=== PATIENT | female | born 1935 | race Caucasian/White ===

== ENCOUNTER 2018-04-18 09:21 | Inpatient (IN) | payer BC, MEDICARE ==
[2018-04-18] MEDS ORDERED: Nitroglycerin TAB 0.4 MG* 0.4 MG TAB SL ONE (09:26)
[2018-04-18] MEDS ORDERED: Nitroglycerin 2% OINT* 1 GM PAK TOPICAL ONE (09:26)
[2018-04-18 09:48] LABS: ABS Basophils 0 10^3/ul (0-0.2); ABS Eosinophils 0.2 10^3/ul (0-0.6); ABS Lymphocytes 1.8 10^3/ul (1.0-4.8); ABS Monocytes 0.7 10^3/ul (0-0.8); ABS Neutrophils 4.8 10^3/ul (1.5-7.7); ABS Nucleated RBC 0 10^3/ul; Hematocrit 39 % (35-47); Hemoglobin 12.9 g/dl (12.0-16.0); Lymphocyte % 24.7 % (25-47); Mean Corpuscular HGB Conc 33 g/dl (31-36); Mean Corpuscular Hemoglobin 30 pg (27-31); Mean Corpuscular Volume 92 fL (80-97); Mean Platelet Volume 7.6 um3 (7.4-10.4); Nucleated Red Blood Cells % 0.1; Platelet Count 207 10^3/ul (150-450); Red Blood Count 4.26 10^6/ul (4.0-5.4); Red Cell Distribution Width 15 % (10.5-15); White Blood Count 7.5 10^3/ul (3.5-10.8)
[2018-04-18 10:09] LABS: EGFR Non-African American 52.7 (>60)
--- NOTE | 2018-04-18 10:21 | RAD ---
HISTORY: CP, chest pain COMPARISONS: None VIEWS: 1: frontal portable view of the chest at 10:00 AM FINDINGS: LINES AND TUBES: None. CARDIOMEDIASTINAL SILHOUETTE: The cardiomediastinal silhouette is normal for portable technique. PLEURA: The costophrenic angles are sharp. No pleural abnormalities are noted. LUNG PARENCHYMA: The lungs are clear. ABDOMEN: The upper abdomen is clear. There is no subphrenic gas. BONES AND SOFT TISSUES: No bone or soft tissue abnormalities are noted. IMPRESSION: NO ACTIVE CARDIOPULMONARY DISEASE.
[2018-04-18] MEDS ORDERED: Diltiazem IV* 5 MG/ML 5 ML VIAL (for loading dose/IV Push) (25 MG) IV SLOW PU ONE (10:53)
[2018-04-18] MEDS ORDERED: nitroGLYCERIN DRIP* 25,000 MCG/250 ML BTL IV ONE (10:53)
[2018-04-18] MEDS ORDERED: NS 0.9% 1000 ML* 1,000 ML IV ONE (11:25)
[2018-04-18] MEDS ORDERED: nitroGLYCERIN DRIP* 25,000 MCG/250 ML BTL IV SCH (12:00)
[2018-04-18] MEDS ORDERED: Magnesium Sulfate IV* 3 GM in NS 0.9% 100 ML* 100 ML IVPB ONE (12:24)
[2018-04-18] MEDS ORDERED: Perflutren Lipid Microsphere* 3 ML VIAL ONE (13:44)
[2018-04-18] MEDS: NS 0.9% 1000 ML* 1,000 ML IV SCH (13:53)
--- NOTE | 2018-04-18 14:51 | HP ---
CC: Dr. Darron Hawkins * HISTORY AND PHYSICAL: DATE OF ADMISSION: 04/18/18 PRIMARY CARE PROVIDER: Dr. Darron Hawkins. ATTENDING PHYSICIAN: Naty Means DO * (dictated by Emani Aly NP). CHIEF COMPLAINT: Chest pain. HISTORY OF PRESENT ILLNESS: Ms. Falcon is an 82-year-old female with a past medical history significant for osteoarthritis, hypertension, paroxysmal atrial fibrillation, hyperlipidemia, hypothyroidism, mitral valve prolapse, GERD, and vitamin B12 deficiency who states that she had been in her usual state of health. She reports several days ago cleaning all of her yard furniture, carrying them out of storage and washing them. She reports a couple of days ago noticing some shortness of breath while carrying laundry up the stairs that she typically does not experience. She reports having a cough and a cold approximately 3 weeks ago that resolved after she was prescribed some nasal spray by her primary care provider. According to the patient, her son noted that she was sweating at dinner last evening. She felt that she was just hot and did not think much of it. She reports feeling like herself when she went to bed last evening. She reports waking up at 1 a.m. with her "teeth hurting and feeling as though an elephant was sitting on her chest." She got up, made some tea, and laid on the cough and intermittently slept some. She then got up and around for the day and for an hour she went and walked at [employer]. She is unsure how many times she walked around or the distance that she walked. She had no changes in her discomfort while she went on this walk. She reports taking this walk every day. She reports generally getting palpitations and knowing when she is in AFib, but did not have palpitations today. Her daughter who is a physician assistant strength coach talked with her this morning and she recommended she go to her primary care provider. She went to Dr. Hawkins's office where she had an EKG showing atrial fibrillation with RVR and a new left bundle branch block since 2016. She had aspirin and nitro and was sent to the emergency room. The patient also denies any fevers, chills, cough, vomiting, diarrhea, or abdominal pain. She reports dry heaves this morning. She denies lightheadedness, dizziness. She does report some shortness of breath with exertion and at rest today. While in the emergency room, she had an EKG showing an atrial fibrillation at a rate of 109 and a left bundle branch block. She had a troponin of 0.00. Her other labs were unremarkable. I did add on a magnesium, which was 1.6 and ordered replacement. She had a repeat EKG showing a sinus rhythm and a rate of 71 and a left bundle branch block. She continued to have chest pressure after receiving sublingual nitro and nitro paste. She was started on a nitro drip and at this time she feels the pain is improving, but still continues to have a "heavy sensation" in her chest. Her pain is reproducible with palpation in her left chest and lower sternum. The patient also reports some radiating of her pain to her left arm. The hospitalist were asked to evaluate the patient for admission. PAST MEDICAL HISTORY: 1. Osteoarthritis. 2. Hypertension. 3. Paroxysmal atrial fibrillation. 4. Hyperlipidemia. 5. Hypothyroidism. 6. Mitral valve prolapse. 7. GERD. 8. Vitamin B12 deficiency. PAST SURGICAL HISTORY: 1. Status post ORIF of pelvis. 2. Status post partial thyroidectomy. 3. Status post excision of benign cyst at the right arm. 4. Status post excision of benign tumor behind her right knee. 5. Status post hysterectomy. 6. Status post appendectomy. 7. Status post left breast lumpectomy. 8. Status post right carpal tunnel release. MEDICATIONS: Home medications include: 1. Atorvastatin 40 mg oral daily. 2. Metoprolol tartrate 50 mg oral twice daily. 3. Flecainide 150 mg oral twice daily. 4. Pradaxa 150 mg oral twice daily. 5. Vitamin B12 a 1000 mcg oral daily. 6. Vitamin D 1000 units oral daily. 7. Evista 60 mg oral daily. 8. Levothyroxine 75 mcg oral daily. ALLERGIES: 1. TETRACYCLINE. 2. MULTAQ, causes nausea and vomiting. FAMILY HISTORY: She denies family history of coronary artery disease. Her son has a history of diabetes. Her mother passed in her 80s from colon cancer. SOCIAL HISTORY: The patient denies tobacco or recreational drug use. She drinks 2 glasses of wine daily. Her daughter, Janine Green, will be her surrogate decision maker in the event she is unable to make decisions for herself. REVIEW OF SYSTEMS: I performed an 11-point review of systems. All the pertinent positives and negatives are mentioned in the history of present illness. Remaining of the systems are negative. PHYSICAL EXAMINATION GENERAL APPEARANCE: The patient is alert, pleasant, appears to be in no acute distress. VITAL SIGNS: Temperature 97.9, heart rate 64, respiratory rate 18, O2 sat 99% on 2 L via nasal cannula, blood pressure 132/88. HEENT: Normocephalic, atraumatic. Pupils are equal and reactive to light. Extraocular movements are intact. RESPIRATORY: There is no accessory muscle use. The lungs are clear to auscultation bilaterally. CARDIOVASCULAR: Regular rate and rhythm. S1 and S2 present. There is no murmurs, rubs, or gallops heard. ABDOMEN: Soft, nontender, and nondistended. There are bowel sounds present x4. EXTREMITIES: There is no lower extremity edema. DP and PT pulses are 2+ and symmetric. MUSCULOSKELETAL: There is no clubbing or cyanosis noted. The patient exhibits good strength in all extremities. The patient does have reproducible pain to her lower sternum and left chest with palpation. NEUROLOGIC: The patient is alert and oriented x4. Cranial nerves II through XII are grossly intact. PSYCHOLOGICAL: The patient is calm and cooperative. SKIN: There are no rashes or abnormalities seen. DIAGNOSTIC STUDIES/LABORATORY DATA: Sodium 141, potassium 4.4, chloride 108, CO2 of 23, BUN 18, creatinine 1.01, glucose 111. Troponin 0.00. Magnesium 1.6. White blood cell count 7.5, hemoglobin 12.9, hematocrit 39, platelet count 207. EKG from 09 shows an atrial fibrillation at a rate of 109 and a left bundle branch block. Repeat EKG at 1117 shows a sinus rhythm and a rate of 71 and a left bundle branch block. Chest x-ray from today. Radiologist Impression: No active cardiopulmonary disease. IMPRESSION: Ms. Falcon is an 82-year-old female with past medical history significant for osteoarthritis, hypertension, paroxysmal atrial fibrillation, hyperlipidemia, hypothyroidism, mitral valve prolapse, gastroesophageal reflux disease, and vitamin B12 deficiency who presents to the emergency room with complaints of chest pain. She will be admitted as an inpatient for chest pain and new left bundle branch block. ASSESSMENT/PLAN: 1. Chest pain. The patient has a new left bundle branch block that is new from 2016. She will be continued on a nitro drip, monitored on telemetry in the ICU, and we will trend her troponins. I have asked Dr. Mclean with Cardiology to consult on the patient, also get an echocardiogram. She has a KIMBERLY score of 2. 2. Atrial fibrillation with rapid ventricular response. The patient converted to sinus rhythm while in the emergency room. She will be continued on her home flecainide, Pradaxa, and metoprolol. 3. History of hypertension. She is currently normotensive. She will be continued on her home metoprolol. 4. Hyperlipidemia. Continue home atorvastatin. We will check fasting lipids in the morning. 5. Hypothyroidism. Continue home levothyroxine. I will add a TSH to her emergency room labs. 6. Fluids, electrolytes, and nutrition: She will be on a heart-healthy diet. 7. Code status: Full code. 8. DVT prophylaxis: She is a high risk and will be continued on her home Pradaxa. 9. Disposition: Inpatient. TIME SPENT: Time for this admission was approximately 60 minutes, greater than half of that was spent [id number] with the patient discussing medications, past medical history, the events leading up to her arrival today, and performing a physical examination. The case has been reviewed with the attending, Dr. Means, who agrees with the plan of care. Reviewed by TAMIKA VENTURA 04/21/18 [id number]/[facility] #: [id number] AUGUSTINE
--- NOTE | 2018-04-18 16:08 | ECHO ---
Patient: FABIO CARO [facility] Rec#: [id number] : 1935 Date: 04/18/2018 Age: 82y Height: 170.18 cm / 67.0 in Weight: 68.04 kg / 150.0 lbs Sex: F BSA: 1.79 Room#: ICU 9 Admit Date#: 04/18/2018 Type: Inpatient Referring: Emani Hough NP Reading: Ryan Mclean MD Grapple Crew Leader: Zulma Hammonds RDCS,RDMS CC: Darron Hawkins MD Transthoracic Echocardiogram Indication: CP BP: 112/82 HR: 57 Rhythm: NSR Findings History: AFIB, HTN Technical Comments: The study quality is good. Left Ventricle: The left ventricular chamber size is normal. Mild concentric left ventricular hypertrophy is observed. Global left ventricular wall motion and contractility are within normal limits. Left ventricular systolic function is at the lower limits of normal. The estimated ejection fraction is 50-55%. Left Atrium: The left atrium is mildly dilated. Right Ventricle: The right ventricular chamber size and systolic function are within normal limits. Right Atrium: The right atrial cavity size is normal. Aortic Valve: The aortic valve is trileaflet. Systolic excursion of the aortic valve is normal. There is a trace of aortic regurgitation. There is no evidence of aortic stenosis. Mitral Valve: Mild mitral annular calcification present. Mitral valve leaflet mobility appears normal. There is moderate mitral regurgitation. There is no evidence of mitral stenosis. Tricuspid Valve: The tricuspid valve leaflets are normal. There is trace tricuspid regurgitation. No pulmonary hypertension is noted. Pulmonic Valve: The pulmonic valve structure is not well visualized. There is a trace pulmonic regurgitation. Pericardium: There is no significant pericardial effusion. Aorta: The aortic root appears normal. The aortic arch is not well visualized. Pulmonary Artery: The main pulmonary artery is not well visualized. Venous: The inferior vena cava appears normal in size. Contrast: Definity was used to optimize study. A total of 2 ml was used Conclusions Mild concentric left ventricular hypertrophy is observed. Global left ventricular wall motion and contractility are within normal limits. Left ventricular systolic function is at the lower limits of normal. The estimated ejection fraction is 50-55%. The right ventricular chamber size and systolic function are within normal limits. There is no evidence of aortic stenosis. There is a trace of aortic regurgitation. There is moderate mitral regurgitation. There is trace tricuspid regurgitation. There is no significant pericardial effusion. Measurements Name Value Normal Range RVIDd (AP) 2D 2.1 cm (0.9 - 2.6) RAd ISD 4CH 4.9 cm (3.4 - 4.9) RA (A4C)W 4.3 cm (2.9 - 4.6) IVSd (2D) 1.1 cm (0.6 - 1) LVPWd (2D) 1.2 cm (0.6 - 1) LVIDd (2D) 3.9 cm (3.6 - 5.4) LVIDs (2D) 3 cm - LV FS (2D) 22 % (25 - 45) Aortic Annulus 2 cm (1.4 - 2.6) Ao root diameter (2D) 2.8 cm (2.1 - 3.5) Ascending Ao 2.5 cm (2.1 - 3.4) LA dimension (AP) 2D 3.6 cm (2.3 - 3.8) LAd ISD 4CH 5.4 cm (2.9 - 5.3) LA ISD 4CH W 4.1 cm (2.5 - 4.5) Name Value Normal Range LA ESV SP 4CH (A/L) 50.52 ml - LA ESV SP 2CH (A/L) 85.3 ml - LA ESV BP (A/L) 70.91 ml - LA ESV BP (A/L) index 40 ml/m2 - LA ESV SP 4CH (MOD) 48.56 ml - LA ESV SP 2CH (MOD) 80.03 ml - Name Value Normal Range MV E-wave Vmax 0.8 m/sec - MV deceleration time 238 msec - MV A-wave Vmax 0.5 m/sec - MV E:A ratio 1.6 ratio - Name Value Normal Range AV Vmax 1.2 m/sec - AV VTI 27.1 cm - AV peak gradient 6 mmHg - AV mean gradient 3.8 mmHg - LVOT Vmax 1.1 m/sec - LVOT VTI 21 cm - LVOT peak gradient 5 mmHg - LVOT mean gradient 2.6 mmHg - Name Value Normal Range TR Vmax 2.3 m/sec - TR peak gradient 21 mmHg - RAP 3 mmHg - RVSP 24 mmHg - IVC diameter 2 cm - Name Value Normal Range PV Vmax 0.7 m/sec - PV peak gradient 2 mmHg -
[2018-04-18] MEDS: Diltiazem TAB* 30 MG PO SCH ×2 (18:21→23:53)
--- NOTE | 2018-04-18 18:50 | ED ---
Umair Loving Angela scribed for Andrae Gonzalez MD on 04/18/18 at 0934 . HPI Chest Pain - HPI Summary HPI Summary: This pt is an 82 y/o female presenting to [facility] via EMS from PCP's office c/o chest pain since 01:00 this morning. Pt reports she woke up at 01:00 today with a heavy chest. She states her chest pain radiates to her teeth and both arms. Pt notes she thought her symptoms were from all the work she did in the garden yesterday. Pt additionally notes she had SOB and nausea. Denies vomiting. She reports she was unable to take a deep full breath. She then went back to sleep and woke up later to take a 1 hour walk with her friends. Pt states she was tired during her walk. Pt called her daughter who advised her to go her PCP. She went to her PCP and she was referred to [facility]. Pt notes she still has chest heaviness currently rated 3 or 4 out of 10 in severity. EMS administered nitroglycerin tabs x3 with mild relief. Pt received baby aspirin at her PCP's office. PMHx includes atrial fibrillation, rheumatic fever. No hx of diabetes or pacemaker. Pt is anticoagulated. LBBB is new compared to EKG in June 2016. - History of Current Complaint Hx Obtained From: Patient Onset/Duration: Started Hours Ago, Still Present Timing: Lasting Hours Current Severity: Moderate Pain Intensity: 4 Pain Scale Used: 0-10 Numeric Chest Pain Location: Diffuse Chest Pain Radiates: Yes Chest Pain Radiates To:: Arm, Jaw Character: Heaviness Aggravating Factor(s): Nothing Alleviating Factor(s): Nothing Associated Signs and Symptoms: Positive: Chest Pain, Shortness of Breath, Nausea. Negative: Fever, Chills, Back Pain, Vomiting - Allergy/Home Medications Allergies/Adverse Reactions: Allergies Allergy/AdvReac Type Severity Reaction Status Date / Time Tetracyclines Allergy Rash Verified 04/18/18 09:47 Home Medications: Home Medications Atorvastatin* [Lipitor*] 40 mg PO DAILY 04/18/18 [History Confirmed 04/18/18] Cholecalciferol TAB* [Vitamin D TAB*] 1,000 unit PO DAILY 04/18/18 [History Confirmed 04/18/18] Cyanocobalamin TAB* [Vitamin B12 TAB*] 1,000 mcg PO DAILY 04/18/18 [History Confirmed 04/18/18] Dabigatran CAP(NF) [Pradaxa CAP(NF)] 150 mg PO BID 04/18/18 [History Confirmed 04/18/18] Flecainide TAB* [Tambocor TAB*] 150 mg PO BID 04/18/18 [History Confirmed ] Levothyroxine TAB* [Synthroid TAB*] 75 mcg PO DAILY 04/18/18 [History Confirmed 04/18/18] Metoprolol Tartrate TAB* [Lopressor TAB*] 50 mg PO BID 04/18/18 [History Confirmed 04/18/18] Omeprazole CAP* [Prilosec CAP* 20 MG] 20 mg PO DAILY 04/18/18 [History Confirmed 04/18/18] Raloxifene (NF) [Evista(NF)] 60 mg PO DAILY 04/18/18 [History Confirmed 04/18/18 ] PMH/Surg Hx/FS Hx/Imm Hx Endocrine/Hematology History: Denies: Hx Diabetes Cardiovascular History: Reports: Hx Atrial Fibrillation, Hx Rheumatic Fever Denies: Hx Pacemaker/ICD - Family History Known Family History: Positive: Diabetes Family History: Cancer, migraines - Social History Alcohol Use: None Substance Use Type: Reports: None Smoking Status (MU): Never Smoked Tobacco Review of Systems Positive: Fatigue. Negative: Fever, Chills Negative: Erythema Negative: Sore Throat Positive: Chest Pain Positive: Shortness Of Breath. Negative: Cough Positive: Nausea. Negative: Abdominal Pain, Vomiting Negative: dysuria, hematuria Negative: Myalgia, Edema Negative: Rash Neurological: Other - NEG: dizziness All Other Systems Reviewed And Are Negative: Yes Physical Exam - Summary Physical Exam Summary: Constitutional: Well-developed, Well-nourished, Alert. (-) Distressed Skin: Warm, Dry HENT: Normocephalic; Atraumatic Eyes: Conjunctiva normal Neck: Musculoskeletal ROM normal neck. (-) JVD, (-) Stridor, (-) Tracheal deviation Cardio: Rhythm regular, rate normal, Heart sounds normal; Intact distal pulses; The pedal pulses are 2+ and symmetric. Irregular pulse which I palpated to be 104 bpm. (-) Murmur Pulmonary/Chest wall: Effort normal. (-) Respiratory distress, (-) Wheezes, (-) Rales Abd: Soft, (-) Tenderness, (-) Distension, (-) Guarding, (-) Rebound Musculoskeletal: (-) Edema Lymph: (-) Cervical adenopathy Neuro: Alert, Oriented x3 Psych: Mood and affect Normal Triage Information Reviewed: Yes Vital Signs On Initial Exam: Initial Vitals Temp Pulse Resp BP Pulse Ox 97.9 F 103 19 131/100 94 04/18/18 09:29 04/18/18 09:29 04/18/18 09:29 04/18/18 09:29 04/18/18 09:29 Vital Signs Reviewed: Yes Diagnostics - Laboratory Result Diagrams: 04/18/18 09:41 04/18/18 09:41 Lab Statement: Any lab studies that have been ordered have been reviewed, and results considered in the medical decision making process. - Radiology Chest XR Xray Interpretation: No Acute Changes - IMPRESSION: No active cardiopulmonary disease. Dr. Gonzalez has reviewed this radiology report. Radiology Interpretation Completed By: Radiologist - EKG 09:23 Cardiac Rate: Tachycardia - at 109 bpm EKG Rhythm: Atrial Fibrillation EKG Interpretation: new LBBB. No STEMI. 11:17 Cardiac Rate: NL - at 71 bpm EKG Rhythm: Sinus Rhythm EKG Interpretation: LBBB. Re-Evaluation - Re-Evaluation First Eval Re-Evaluation Time: 11:06 Change: Unchanged Comment: Pt feels like an elephant is sitting on her chest. She rates her chest discomfort 4 or 5 out of 10 in severity. Second Eval Re-Evaluation Time: 11:18 Change: Improved Comment: Afib with rate control at 60 bpm. Third Eval Re-Evaluation Time: 11:59 Change: Unchanged Comment: Updated family on admission plan. Pt is still having 4/10 chest pain. She will be given nitroglycerin drip. Chest Pain Course/Dx - Course Assessment/Plan: Pt is an 82 y/o female with hx of afib on anticoagulation who presents with chest pain since 01:00 this morning. Pt reports she woke up at 01: 00 today with a heavy chest. She states her chest pain radiates to teeth and both arms. Pt additionally notes she had SOB and nausea. Denies vomiting. She reports she was unable to take a deep full breath. Pt was given aspirin and nitro tabs x3. In the ED course the pt was given IV fluids, nitroglycerin ointment, nitroglycerin drip, Diltiazem. Chest XR is negative. First EKG shows atrial fibrillation at 109 bpm with new LBBB. Second EKG shows NSR at 71 bpm and LBBB. On re-evaluation her atrial fibrillation is rate controlled at 60 bpm. [11:06]I discussed pt care with Dr. Mclean, wet end supervisor, who agrees to call the interventionalist. [11:22] I discussed with Dr. Sidhu, yoavist, and reports that due to the negative troponin and her anticoagulated status, he wants to wait until the second troponin before taking the pt to the slab off mill tender. [11:29] I discussed with Dr. Means, hospitalist, who accepted the pt for admission. - Diagnoses Provider Diagnoses: Chest pain, Left bundle branch block - Provider Notifications Discussed Care Of Patient With: Ryan Mclean Time Discussed With Above Provider: 11:06 Instructed by Provider To: Other - I discussed pt care with Dr. Mclean, wet end supervisor, who agrees to call the interventionalist. [11:22] I discussed with Dr. Sidhu, interventionalist, and reports that due to the negative troponin and her anticoagulated status, he wants to wait until the second troponin before taking the pt to the slab off mill tender. [11:29] I discussed with Dr. Means, hospitalist, who accepted the pt for admission. - Critical Care Time Critical Care Time: 30-74 min - 45 minutes Discharge - Sign-Out/Discharge Documenting (check all that apply): Discharge/Admit/Transfer - Admit - Discharge Plan Condition: Stable Disposition: ADMITTED TO [facility] documentation as recorded by the Umair herman Angela accurately reflects the service I personally performed and the decisions made by me, Andrae Gonzalez MD.
[2018-04-18] MEDS: Metoprolol Tartrate TAB* 50 mg PO SCH (20:21)
[2018-04-18] MEDS: CMCS Dabigatran CAP(NF) 150 MG CAP PO SCH (20:21)
[2018-04-18] MEDS ORDERED: Flecainide TAB* 100 MG PO SCH (21:00)
--- NOTE | 2018-04-19 00:50 | CONS ---
CC: Dr. Darron Hawkins * CARDIOLOGY CONSULTATION: DATE OF CONSULT: 04/18/18 - ROOM #ICU-09 INDICATIONS FOR CONSULT: Chest pain, left bundle branch block, atrial fibrillation. HISTORY OF PRESENT ILLNESS: The patient is an 82-year-old female with a history of paroxysmal atrial fibrillation. The patient is on anticoagulation and flecainide for her atrial fibrillation, who had an episode of chest pain last night. The patient states she woke up around 1:00 in the morning, she went downstairs to get tea and started having chest pain. It was in the center of her chest that radiated to her jaw. She had no diaphoresis. She had no nausea and vomiting. She said it lasted for maybe an hour or so and then, she was able to go back to bed. She got up in the morning. She went with her walking group and walked for approximately half an hour. She states she felt tired, but did not have actual chest pain. She got home, was feeling just fatigued and spoke with her daughter. Her daughter asked her to be evaluated. The patient went to Dr. Hawkins's office, where she was found to have a left bundle branch block and atrial fibrillation. She was since admitted to the hospital. In the emergency room, the patient was having chest pain. It was not radiating to her jaw at that point. She just felt a heaviness in her chest. She rated it as about 2/10. The patient was in atrial fibrillation with rapid ventricular response. The patient was admitted to the hospital. She was continued on her outpatient medications. She was started on a nitro drip. Her troponins are negative x2. When I went to see the patient, she was back in normal sinus rhythm and asymptomatic. PAST MEDICAL HISTORY: Significant for arthritis, hypertension, paroxysmal atrial fibrillation, and hyperlipidemia. PAST SURGICAL HISTORY: ORIF of a pelvis fracture, status post thyroidectomy, hysterectomy, appendectomy, left breast lumpectomy, and carpal tunnel release on the right. OUTPATIENT MEDICATIONS: 1. Atorvastatin 40 mg a day. 2. Metoprolol tartrate 50 mg b.i.d. 3. Flecainide 150 mg b.i.d. 4. Pradaxa 150 mg b.i.d. 5. Evista 60 mg a day. 6. Levothyroxine 75 mcg a day. ALLERGIES: To TETRACYCLINE and MULTAQ, which cause nausea. FAMILY HISTORY: Positive for coronary artery disease. SOCIAL HISTORY: She drinks 2 glasses of wine a day. She denies any tobacco use. PHYSICAL EXAM: Height is 5 feet 7 inches, weight is 162 pounds. Heart rate is 76, blood pressure 106/74, respiratory rate is 22, oxygen saturation 97% on 2 L , temperature 97.2. Sclerae anicteric. Oropharynx is pink without erythema. Carotids are 2+ without bruits. JVD is normal. Thyroid is normal. Cardiac Exam: S1, S2 without any murmurs, rubs, or gallops. PMI is normal. Lungs are clear to auscultation bilaterally. There is no dullness to percussion. Abdomen is soft, nontender, and nondistended with normoactive bowel sounds. Extremities show no edema. She has 2+ pulses through-out. The patient is awake , alert, and oriented. She moves all 4 extremities equally. DIAGNOSTIC STUDIES/LAB DATA: An echocardiogram today demonstrated low normal LV systolic function, ejection fraction of 50% to 55%. There is no evidence of aortic stenosis. She does have moderate mitral regurgitation and trace tricuspid regurgitation. Laboratory studies: CBC within normal limits. Chemistries within normal limits. Troponins are negative x2. TSH 1.4. IMPRESSION AND PLAN: This is an 82-year-old female with a history of paroxysmal atrial fibrillation, who woke up last night and was having some chest pain radiating up into her jaw. Again, it lasted for about an hour. She was also having chest pain on and off this morning. The patient arrived in the emergency room, she was having mild chest pain. She had a new left bundle branch block and atrial fibrillation. The patient is now back in normal sinus rhythm. For now, my recommendation is that the patient undergo a chemical nuclear stress test. The patient is back in atrial fibrillation now. The patient is on the maximum dose of flecainide. The patient may require a different antiarrhythmic medication for control of her atrial fibrillation. Further recommendations pending the results of her stress test. [id number]/[facility] #: [id number] A[place]
[2018-04-19] MEDS ORDERED: Acetaminophen TAB* 325 MG ONE (02:19)
[2018-04-19] MEDS: Acetaminophen TAB* 325 MG PO PRN ×3 (02:22→21:33)
[2018-04-19] MEDS ORDERED: Nitroglycerin 2% OINT* 1 GM PAK TOPICAL ONE (02:26)
[2018-04-19] MEDS ORDERED: Nitroglycerin 2% OINT* 1 GM PAK ONE (02:33)
[2018-04-19] MEDS: Levothyroxine TAB* 75 MCG TAB PO SCH (05:47)
[2018-04-19] MEDS: Diltiazem TAB* 30 MG PO SCH ×3 (05:47→18:19)
[2018-04-19] MEDS: Atorvastatin* 40 MG TAB PO SCH (07:57)
[2018-04-19] MEDS: Omeprazole CAP* 20 MG PO SCH (07:57)
[2018-04-19] MEDS: Metoprolol Tartrate TAB* 50 mg PO SCH ×2 (07:57→21:33)
[2018-04-19] MEDS: Cyanocobalamin TAB* 500 MCG PO SCH (07:57)
[2018-04-19] MEDS: Cholecalciferol TAB* 1000 UNITS PO SCH (07:57)
[2018-04-19] MEDS: CMCS Dabigatran CAP(NF) 150 MG CAP PO SCH ×2 (07:59→21:33)
[2018-04-19] MEDS: RALOXIFENE 60 MG PO SCH (08:00)
[2018-04-19] MEDS ORDERED: Nitroglycerin TAB 0.4 MG* 0.4 MG TAB ONE (08:35)
[2018-04-19] MEDS: Nitroglycerin TAB 0.4 MG* 0.4 MG TAB SL PRN ×2 (08:37→08:43)
[2018-04-19] MEDS ORDERED: Regadenoson* 0.4 MG/5 ML SYRINGE ONE (10:09)
[2018-04-19] MEDS ORDERED: Aminophylline IV* 25 MG/ML 10 ML VIAL ONE (10:09)
--- NOTE | 2018-04-19 11:43 | RAD ---
INDICATION: Chest pain. Left bundle branch block COMPARISON: None TECHNIQUE: A single day SPECT protocol was utilized. Rest images were acquired following the intravenous injection of 10.8 millicuries of technetium 99m tetrofosmin. Pharmacologic stress images were acquired following the intravenous administration of 25.2 millicuries of technetium 99m tetrofosmin. FINDINGS: There are no stress-induced defects. There is mild decreased activity in the septal wall at the level the cardiac apex which appears fixed. The cardiac chamber size is normal. There are no wall motion abnormalities. The ejection fraction is calculated at 62 percent during stress. IMPRESSION: SMALL FIXED SEPTAL DEFECT NEAR THE CARDIAC APEX, OTHERWISE NEGATIVE. ASSESSMENT: LOW-RISK Based on imaging criteria from ACC/AHA 2002 Guideline Update for the Management of Patients With Chronic Stable Angina Table 23. Noninvasive Risk Stratification.
[2018-04-19] MEDS ORDERED: Amiodarone 150 MG IVPREMIX* 150 MG/100 ML BAG IV ONE ×2 (11:57→12:04)
[2018-04-19] MEDS ORDERED: Amiodarone 360 MG IVPREMIX* 360 MG/200 ML BAG IV ONE (12:10)
--- NOTE | 2018-04-19 12:56 | PN ---
Subjective Date of Service: 04/19/18 Interval History: HOSPITALIST PROGRESS NOTE Patient seen and examined at bedside. Care reviewed and d/w Larissa Yip RN. She feels better today, chest pain was down to 1/10, but later on developed chest pain radiating to her jaw and teeth, relieved by nitro. Family History: Unchanged from Admission Social History: Unchanged from Admission Past Medical History: Unchanged from Admission Objective Active Medications: Acetaminophen (Tylenol Tab*) 650 mg PO Q6H PRN PRN Reason: PAIN Last Admin: 04/19/18 02:22 Dose: 650 mg Atorvastatin Calcium (Lipitor*) 40 mg PO DAILY [facility] Last Admin: 04/19/18 07:57 Dose: 40 mg Cholecalciferol (Vitamin D Tab*) 1,000 units PO DAILY [facility] Last Admin: 04/19/18 07:57 Dose: 1,000 units Cyanocobalamin (Vitamin B12 Tab*) 1,000 mcg PO DAILY [facility] Last Admin: 04/19/18 07:57 Dose: 1,000 mcg Dabigatran (Pradaxa Cap(Nf)) 150 mg PO BID [facility] Last Admin: 04/19/18 07:59 Dose: 150 mg Diltiazem HCl (Cardizem Tab*) 30 mg PO Q6HR [facility] Last Admin: 04/19/18 12:26 Dose: 30 mg Sodium Chloride (Ns 0.9% 1000 Ml*) 1,000 mls @ 75 mls/hr IV PER RATE [facility] Last Admin: 04/18/18 13:53 Dose: 75 mls/hr Amiodarone HCl (Nexterone 360 Mg/200 Ml Ivpremix*) 360 mg in 200 mls @ 33.333 mls/hr IV ONCE ONE PRN Reason: 1 MG/MIN Stop: 04/19/18 18:09 Last Admin: 04/19/18 12:23 Dose: 33.333 mls/hr Levothyroxine Sodium (Synthroid Tab*) 75 mcg PO 0600 [facility] Last Admin: 04/19/18 05:47 Dose: 75 mcg Metoprolol Tartrate (Lopressor Tab*) 50 mg PO BID [facility] Last Admin: 04/19/18 07:57 Dose: 50 mg Nitroglycerin (Nitroglycerin Tab 0.4 Mg*) 0.4 mg SL Q5M PRN PRN Reason: ANGINA Last Admin: 04/19/18 08:43 Dose: 0.4 mg Omeprazole (Prilosec Cap*) 20 mg PO 0730 [facility] Last Admin: 04/19/18 07:57 Dose: 20 mg Raloxifene HCl (Evista(Nf)) 60 mg PO DAILY [facility] PRN Reason: Protocol Last Admin: 04/19/18 08:00 Dose: Not Given Vital Signs - 8 hr 04/19/18 04/19/18 04/19/18 05:00 06:00 07:00 Temperature Pulse Rate 77 Respiratory 19 16 13 Rate Blood Pressure 114/85 134/86 128/81 (mmHg) O2 Sat by Pulse 97 98 91 Oximetry 04/19/18 04/19/18 04/19/18 07:36 08:00 08:39 Temperature 98.8 F Pulse Rate 84 Respiratory 14 14 Rate Blood Pressure 144/121 (mmHg) O2 Sat by Pulse 98 Oximetry 04/19/18 04/19/18 04/19/18 08:40 08:45 08:50 Temperature Pulse Rate 86 76 81 Respiratory 20 23 18 Rate Blood Pressure 124/90 115/76 106/65 (mmHg) O2 Sat by Pulse 98 96 94 Oximetry 04/19/18 04/19/18 04/19/18 08:55 09:30 09:35 Temperature Pulse Rate 78 78 Respiratory 21 5 25 Rate Blood Pressure 107/72 112/79 (mmHg) O2 Sat by Pulse 95 93 Oximetry 04/19/18 04/19/18 04/19/18 09:40 09:45 09:50 Temperature Pulse Rate 80 81 85 Respiratory 26 20 Rate Blood Pressure 110/48 115/78 120/90 (mmHg) O2 Sat by Pulse 96 97 96 Oximetry 04/19/18 04/19/18 04/19/18 11:14 11:15 11:18 Temperature Pulse Rate 90 102 92 Respiratory 13 15 Rate Blood Pressure 138/101 137/87 (mmHg) O2 Sat by Pulse 97 95 99 Oximetry 04/19/18 04/19/18 04/19/18 11:30 12:00 12:01 Temperature 99.4 F Pulse Rate 90 92 98 Respiratory 20 14 19 Rate Blood Pressure 144/94 140/57 (mmHg) O2 Sat by Pulse 94 97 97 Oximetry 04/19/18 12:14 Temperature Pulse Rate 93 Respiratory 17 Rate Blood Pressure 134/90 (mmHg) O2 Sat by Pulse 98 Oximetry Oxygen Devices in Use Now: Nasal Cannula Appearance: Pleasant elderly lady sitting up in bed in NAD. Eyes: No Scleral Icterus Ears/Nose/Mouth/Throat: Mucous Membranes Moist Neck: Trachea Midline Respiratory: Symmetrical Chest Expansion and Respiratory Effort, Clear to Auscultation Cardiovascular: - - Normal S1 and S2, irregularly irregular Abdominal: NL Sounds; No Tenderness; No Distention Extremities: No Edema Neurological: Alert and Oriented x 3, NL Muscle Strength and Tone Result Diagrams: 04/18/18 09:41 04/18/18 09:41 Assess/Plan/Problems-Billing Assessment: Mrs. Falcon is an 82yo F with PMH of paroxysmal Afib, HTN, HLD, hypothyroidism , MVP, GERD, vitamin B12 deficiency, who presented to ED with c/o chest pain. - Patient Problems (1) Chest pain Comment: - D/w Cardiology - if stress test is negative, will start Amiodarone as Afib seems to be the source of her symptoms. - Continue Metoprolol, Atorvastatin, and Pradaxa. (2) DVT prophylaxis Comment: - Pradaxa. (3) Full code status Status and Disposition: Change to inpatient.
[2018-04-19] MEDS: Amiodarone 360 MG IVPREMIX* 360 MG/200 ML BAG IV SCH (18:24)
[2018-04-20] MEDS: Diltiazem TAB* 30 MG PO SCH ×3 (00:51→11:43)
[2018-04-20] MEDS: Amiodarone 360 MG IVPREMIX* 360 MG/200 ML BAG IV SCH (05:59)
[2018-04-20] MEDS: Levothyroxine TAB* 75 MCG TAB PO SCH (06:00)
[2018-04-20] MEDS: Omeprazole CAP* 20 MG PO SCH (08:22)
[2018-04-20] MEDS: Atorvastatin* 40 MG TAB PO SCH (08:22)
[2018-04-20] MEDS: RALOXIFENE 60 MG PO SCH (08:22)
[2018-04-20] MEDS: CMCS Dabigatran CAP(NF) 150 MG CAP PO SCH (08:22)
[2018-04-20] MEDS: Metoprolol Tartrate TAB* 50 mg PO SCH ×2 (08:22→20:59)
[2018-04-20] MEDS: Cholecalciferol TAB* 1000 UNITS PO SCH (08:22)
[2018-04-20] MEDS: Cyanocobalamin TAB* 500 MCG PO SCH (08:22)
[2018-04-20] MEDS ORDERED: Naloxone* 0.4 MG/ML 1 ML VIAL ONE (09:31)
[2018-04-20] MEDS ORDERED: Flumazenil* 0.1 MG/ML 5 ML MDV ONE (09:31)
[2018-04-20] MEDS ORDERED: fentaNYL* 50 MCG/ML 2 ML VIAL (100 MCG VIAL) ONE (09:31)
[2018-04-20] MEDS ORDERED: Midazolam* 1 MG/ML 10 ML VIAL (10 MG) ONE (09:31)
--- NOTE | 2018-04-20 10:21 | PN ---
Subjective Date of Service: 04/20/18 - CC: chest heaviness. Interval History: The patient awoke from sleep early Wednesday morning with chest heaviness following several glasses of wine the night prior. Unaware of palpitations. Found in atypical flutter vs. atrial fibrillation. Dr. Mclean consulted, had been on flecainide and he initiated amiodarone gtt with plans for CV today. The patient's chest heaviness not present now. Medications Active Medications: Acetaminophen (Tylenol Tab*) 650 mg PO Q6H PRN PRN Reason: PAIN Last Admin: 04/19/18 21:33 Dose: 650 mg Atorvastatin Calcium (Lipitor*) 40 mg PO DAILY [facility] Last Admin: 04/20/18 08:22 Dose: 40 mg Cholecalciferol (Vitamin D Tab*) 1,000 units PO DAILY [facility] Last Admin: 04/20/18 08:22 Dose: 1,000 units Cyanocobalamin (Vitamin B12 Tab*) 1,000 mcg PO DAILY [facility] Last Admin: 04/20/18 08:22 Dose: 1,000 mcg Dabigatran (Pradaxa Cap(Nf)) 150 mg PO BID [facility] Last Admin: 04/20/18 08:22 Dose: 150 mg Diltiazem HCl (Cardizem Tab*) 30 mg PO Q6HR [facility] Last Admin: 04/20/18 06:00 Dose: 30 mg Sodium Chloride (Ns 0.9% 1000 Ml*) 1,000 mls @ 75 mls/hr IV PER RATE [facility] Last Admin: 04/18/18 13:53 Dose: 75 mls/hr Levothyroxine Sodium (Synthroid Tab*) 75 mcg PO 0600 [facility] Last Admin: 04/20/18 06:00 Dose: 75 mcg Metoprolol Tartrate (Lopressor Tab*) 50 mg PO BID [facility] Last Admin: 04/20/18 08:22 Dose: 50 mg Nitroglycerin (Nitroglycerin Tab 0.4 Mg*) 0.4 mg SL Q5M PRN PRN Reason: ANGINA Last Admin: 04/19/18 08:43 Dose: 0.4 mg Omeprazole (Prilosec Cap*) 20 mg PO 0730 [facility] Last Admin: 04/20/18 08:22 Dose: 20 mg Raloxifene HCl (Evista(Nf)) 60 mg PO DAILY [facility] PRN Reason: Protocol Last Admin: 04/20/18 08:22 Dose: 60 mg Objective Vital Signs: Temp Pulse Resp BP Pulse Ox 98.5 F 81 16 126/74 99 04/20/18 08:00 04/20/18 08:31 04/20/18 08:31 04/20/18 08:31 04/20/18 08:31 Oxygen Devices in Use Now: Nasal Cannula Appearance: lean well nourished elderly female in no distress lying at 30 degrees Eyes: No Scleral Icterus, PERRLA Ears/Nose/Mouth/Throat: Clear Oropharnyx, Mucous Membranes Moist Neck: NL Appearance and Movements; NL JVP Respiratory: Symmetrical Chest Expansion and Respiratory Effort, Clear to Auscultation Cardiovascular: NL Sounds; No Murmurs; No JVD - irregularly irregular. Abdominal: NL Sounds; No Tenderness; No Distention Extremities: No Edema, No Clubbing, Cyanosis Skin: No Rash or Ulcers Neurological: Alert and Oriented x 3, NL Muscle Strength and Tone Lines/Tubes/Other Access: Clean, Dry and Intact Peripheral IV Laboratory Results: Laboratory Tests 04/18/18 04/18/18 04/18/18 09:41 09:41 09:41 WBC 7.5 RBC 4.26 Hgb 12.9 Hct 39 MCV 92 MCH 30 MCHC 33 RDW 15 Plt Count 207 MPV 7.6 Neut % (Auto) 63.7 Lymph % (Auto) 24.7 L [place] % (Auto) 9.0 H Eos % (Auto) 2.0 Baso % (Auto) 0.6 Absolute Neuts (auto) 4.8 Absolute Lymphs (auto) 1.8 Absolute Monos (auto) 0.7 Absolute Eos (auto) 0.2 Absolute Basos (auto) 0 Absolute Nucleated RBC 0 Nucleated RBC % 0.1 D-Dimer, Quantitative Sodium 141 Potassium 4.4 Chloride 108 Carbon Dioxide 26 Anion Gap 7 BUN 18 Creatinine 1.01 H Est GFR ( Amer) 67.8 Est GFR (Non-Af Amer) 52.7 BUN/Creatinine Ratio 17.8 Glucose 111 H Lactic Acid 1.1 Calcium 9.0 Magnesium 1.6 L Total Bilirubin 0.60 AST 38 ALT 39 Alkaline Phosphatase 91 Troponin I 0.00 Total Protein 6.4 Albumin 3.8 Globulin 2.6 Albumin/Globulin Ratio 1.5 TSH 1.41 04/18/18 04/18/18 12:30 12:32 WBC RBC Hgb Hct MCV MCH MCHC RDW Plt Count MPV Neut % (Auto) Lymph % (Auto) [place] % (Auto) Eos % (Auto) Baso % (Auto) Absolute Neuts (auto) Absolute Lymphs (auto) Absolute Monos (auto) Absolute Eos (auto) Absolute Basos (auto) Absolute Nucleated RBC Nucleated RBC % D-Dimer, Quantitative < 200 Sodium Potassium Chloride Carbon Dioxide Anion Gap BUN Creatinine Est GFR ( Amer) Est GFR (Non-Af Amer) BUN/Creatinine Ratio Glucose Lactic Acid Calcium Magnesium Total Bilirubin AST ALT Alkaline Phosphatase Troponin I 0.00 Total Protein Albumin Globulin Albumin/Globulin Ratio TSH Diagnostic Imaging: Nuclear stress: EF 66%, small fixed septal defect, no reversable ischemia. ECHO: EF 50-55%, moderate MR. EKG Data: Montitor: atypical flutter overnight (04/18/18 transient NSR). Assessment/Plan 82 yo female with a hx of PAF on flecainide via Dr Fu admitted with atrial flutter and chest heaviness. Intermittant rate related LBBB seen. Anti arrhythmic was converted to IV amiodarone yesterday and today the patient failed electrical CV this AM (75J, 180 J, 200 J). Aflutter/fib: Replace Magnesium Continue Pradaxa Per pharmacy need to drop pradaxa dose for amiodarone due to interaction. Pt advised on alcohol and association with A. fib/flutter. Anti arrhythmic options broader than amiodarone with reassuring stress test, normal EF, per pharmacy 1/2 life single use IV amiodarone is weeks. After extensive discussion with pharmacy, will covert Pradaxa to Eliquis. Continue amiodarone loading but oral. Tentative plan for rate control, out patient amiodarone loading and re try CV with primary suspect artist Dr Fu. Chest heaviness: Improved/resolved, no evidence of significant CAD based on troponins and stress testing. With good ventricular rate control this should be minimized.
[2018-04-20] MEDS ORDERED: Magnesium Sulfate 2 GM IV* 2 GM/50 ML BAG IVPB ONE (10:31)
[2018-04-20] MEDS: Amiodarone TAB* 400 MG PO SCH (11:43)
[2018-04-20] MEDS: NS 0.9% 1000 ML* 1,000 ML IV SCH (11:49)
--- NOTE | 2018-04-20 13:32 | CARD ---
CC: Dr. Delbert Cameron, public events facilities rental manager in [place]; Hospitalist; Dr. Darron Hawkins in [place] * ELECTRICAL CARDIOVERSION NOTE: DATE OF PROCEDURE: 04/20/18 PROCEDURE: Electrical cardioversion. PREPROCEDURE DIAGNOSIS: Coarse atrial fibrillation versus atypical flutter. The indications, risks and benefits of the procedure were discussed with the patient, she verified that she had been compliant with her anticoagulation ( Pradaxa). Her son and son-in-law were present and she was amenable to proceeding. PROCEDURE IN DETAIL: A time-out procedure was called. The patient then received a total of 5 mg of Versed and 25 mcg of fentanyl for sedation. Three defibrillations were attempted, 75 joules, 180 joules, and 200 joules synchronously delivered across the chest wall. She never cardioverted on any of these, not even transiently. CONCLUSION: Unsuccessful cardioversion, on amiodarone drip. The patient was hemodynamically stable throughout the procedure and during recovery. [id number]/[facility] #: [id number] [facility]OSPITALBenji
--- NOTE | 2018-04-20 14:26 | PN ---
Subjective Date of Service: 04/20/18 Interval History: HOSPITALIST PROGRESS NOTE Patient seen and examined at bedside. Care reviewed and d/w Zulma Parker RN. She feels better today, chest pain is resolved. Denies palpitations or dyspnea, but has not moved much. Family History: Unchanged from Admission Social History: Unchanged from Admission Past Medical History: Unchanged from Admission Objective Active Medications: Acetaminophen (Tylenol Tab*) 650 mg PO Q6H PRN PRN Reason: PAIN Last Admin: 04/19/18 21:33 Dose: 650 mg Amiodarone HCl (Cordarone Tab*) 400 mg PO DAILY [facility] Last Admin: 04/20/18 11:43 Dose: 400 mg Apixaban (Eliquis*) 5 mg PO BID [facility] Atorvastatin Calcium (Lipitor*) 40 mg PO DAILY [facility] Last Admin: 04/20/18 08:22 Dose: 40 mg Cholecalciferol (Vitamin D Tab*) 1,000 units PO DAILY [facility] Last Admin: 04/20/18 08:22 Dose: 1,000 units Cyanocobalamin (Vitamin B12 Tab*) 1,000 mcg PO DAILY [facility] Last Admin: 04/20/18 08:22 Dose: 1,000 mcg Levothyroxine Sodium (Synthroid Tab*) 75 mcg PO 0600 [facility] Last Admin: 04/20/18 06:00 Dose: 75 mcg Metoprolol Tartrate (Lopressor Tab*) 50 mg PO BID [facility] Last Admin: 04/20/18 08:22 Dose: 50 mg Nitroglycerin (Nitroglycerin Tab 0.4 Mg*) 0.4 mg SL Q5M PRN PRN Reason: ANGINA Last Admin: 04/19/18 08:43 Dose: 0.4 mg Omeprazole (Prilosec Cap*) 20 mg PO 0730 [facility] Last Admin: 04/20/18 08:22 Dose: 20 mg Raloxifene HCl (Evista(Nf)) 60 mg PO DAILY [facility] PRN Reason: Protocol Last Admin: 04/20/18 08:22 Dose: 60 mg Vital Signs - 8 hr 04/20/18 04/20/18 04/20/18 07:30 08:00 08:01 Temperature 98.5 F Pulse Rate 77 88 84 Respiratory 16 21 18 Rate Blood Pressure 127/81 (mmHg) O2 Sat by Pulse 97 98 98 Oximetry 04/20/18 04/20/1804/20/18 11:00 11:15 11:30 Temperature Pulse Rate 68 62 63 Respiratory 21 20 21 Rate Blood Pressure 110/87 103/71 127/82 (mmHg) O2 Sat by Pulse 93 98 99 Oximetry 04/20/18 04/20/18 04/20/18 11:46 12:00 12:16 Temperature Pulse Rate 70 60 68 Respiratory 22 20 23 Rate Blood Pressure 117/77 123/81 106/67 (mmHg) O2 Sat by Pulse 98 99 99 Oximetry Oxygen Devices in Use Now: Nasal Cannula - 2 liters Appearance: Pleasant elderly lady lying in bed in NAD. Eyes: No Scleral Icterus Ears/Nose/Mouth/Throat: Mucous Membranes Moist Neck: Trachea Midline Respiratory: Symmetrical Chest Expansion and Respiratory Effort, Clear to Auscultation Cardiovascular: - - Normal S1 and S2, irregularly irregular Abdominal: NL Sounds; No Tenderness; No Distention Extremities: No Edema Neurological: Alert and Oriented x 3, NL Muscle Strength and Tone Result Diagrams: 04/18/18 09:41 04/18/18 09:41 Assess/Plan/Problems-Billing Assessment: Mrs. Falcon is an 82yo F with PMH of paroxysmal Afib, HTN, HLD, hypothyroidism , MVP, GERD, vitamin B12 deficiency, who presented to ED with c/o chest pain. - Patient Problems (1) Chest pain Comment: - Likely secondary to Afib RVR. - Stress test was negative. (2) Atrial fibrillation with RVR Comment: - Patient failed cardioversion earlier today - plan now is to continue Amiodarone load and Metoprolol, d/c Cardizem and monitor. - Pradaxa was discontinued due to interaction with Amiodarone - started on Eliquis now. - Transfer to Telemetry. - Encourage ambulation. (3) DVT prophylaxis Comment: - Eliquis. (4) Full code status Status and Disposition: Inpatient.
[2018-04-20] MEDS: Apixaban* 5 MG TAB PO SCH (20:59)
[2018-04-20] MEDS: Docusate CAP* 100 MG PO SCH (21:21)
[2018-04-21] MEDS: Levothyroxine TAB* 75 MCG TAB PO SCH (05:54)
[2018-04-21 07:51] VITALS: BP 131/86
[2018-04-21] MEDS: Atorvastatin* 40 MG TAB PO SCH (08:05)
[2018-04-21] MEDS: Cyanocobalamin TAB* 500 MCG PO SCH (08:05)
[2018-04-21] MEDS: Metoprolol Tartrate TAB* 50 mg PO SCH (08:05)
[2018-04-21] MEDS: Cholecalciferol TAB* 1000 UNITS PO SCH (08:05)
[2018-04-21] MEDS: Omeprazole CAP* 20 MG PO SCH (08:05)
[2018-04-21] MEDS: Apixaban* 5 MG TAB PO SCH (08:05)
[2018-04-21] MEDS: Docusate CAP* 100 MG PO SCH (08:05)
[2018-04-21] MEDS: Amiodarone TAB* 400 MG PO SCH (10:27)
[2018-04-21] MEDS: RALOXIFENE 60 MG PO SCH (10:27)
--- NOTE | 2018-04-21 14:37 | DS ---
CC: Dr. Hawkins; Dr. Mclean. DISCHARGE SUMMARY: DATE OF ADMISSION: 04/18/18 DATE OF DISCHARGE: 04/21/18 PRIMARY CARE PROVIDER: Dr. Hawkins. CONSULTING AUDIO VISUAL COORDINATOR: Dr. Mclean. DISCHARGE DIAGNOSES: Chest pain, acute coronary artery syndrome rule out, likely secondary to atrial fibrillation with rapid ventricular rate. SECONDARY DIAGNOSES: 1. Paroxysmal atrial fibrillation. 2. Hypertension. 3. Hyperlipidemia. 4. Hypothyroidism. 5. Mitral valve prolapse. 6. Gastroesophageal reflux disease. 7. Vitamin B12 deficiency. MEDICATION LIST: 1. Atorvastatin 40 mg p.o. daily. 2. Metoprolol tartrate 50 mg p.o. b.i.d. 3. Cyanocobalamin 1000 mcg p.o. daily. 4. Cholecalciferol 1000 units p.o. daily. 5. Raloxifene 60 mg p.o. daily. 6. Omeprazole 20 mg p.o. daily. 7. Levothyroxine 75 mcg p.o. daily. New Medications: 1. Apixaban 5 mg p.o. b.i.d. 2. Amiodarone 400 mg p.o. daily for 7 days, then 200 mg p.o. daily until follow up with Dr. Mclean. Pradaxa and flecainide were discontinued. HOSPITAL COURSE: Ms. Falcon is an 82-year-old lady with a past medical history as stated above that presented to the emergency room with complaints of chest pain. The patient is very active and she no hernan that while carrying around her usual activities around the home like cleaning, doing laundry, she was more short of breath. On the day of admission, those symptoms got worse and she had a feeling o f an elephant sitting on her chest and this pain would radiate to her jaw and teeth. For more details about her presentation I refer you to her history and physical. In the emergency room, the patient's initial EKG showed atrial fibrillation at 109 beats per minute w ith a rate related left bundle branch block. The patient was admitted for further workup. Serial troponins were negative and a transthoracic echocardiogram showed ejection fraction of 50% to 55%. No evidence of aortic stenosis, moderate mitral regurgitation. No pericardial effusion. The patient was seen in consultation by Cardiology (Dr. Mclean) and his recommendation was for a chemi christina nuclear stress test and he was also concerned that the patient was back and forth into atrial fib rillation despite being on maximum dose of flecainide. He felt that she would probably require a dif ferent antiarrhythmic to control her AFib. The stress test showed a small fixed septal defect near the cardiac apex and that was otherwise negat lb. This was test was deemed to be a low-risk stress test. The impression was that her symptoms are secondary to atrial fibrillation as when her rate became con trolled her chest pain resolved. Dr. Mclean started her on amiodarone drip and the plan was for a car dioversion that was attempted on 04/20/[address] Calvert. Three defibrillations were attempted at 75 , 180, and 200 joules synchronously, but she never cardioverted on any of these tries, not even trans iently. At that point, Dr. Calvert decided the best approach would be to continue amiodarone. Unfor tunately, amiodarone interacted with Pradaxa so decision was made to stop the Pradaxa and start Eliqu is at this time. The patient had resolution of her chest pain. Her atrial fibrillation is rate controlled and she was feeling back at her baseline. She is medically stable to be discharged home today to follow up with Dr. Hawkins and Dr. Mclean as outpatient. PHYSICAL EXAMINATION: Vital Signs: Temperature is 98.4, heart rate is 79, respiratory rate is 14, o xygen saturation 98% on room air, blood pressure is 121/72. General: The patient is a pleasant elde rly lady, lying in bed, in no acute distress. CVS: Normal S1 and S2. Irregularly irregular. Chest : Breast sounds present bilaterally. No added sounds. Extremities: No edema. Neuro: She is aler t and oriented x3. She moves all 4 extremities. DIET: Heart-healthy diet. The patient was advised to avoid caffeine and alcohol. ACTIVITY: As tolerated. The patient was advised to avoid excessive physical exertion. DISPOSITION: To home. STATUS WHILE IN THE HOSPITAL: Inpatient. Please keep in mind this is a summarized version of this patient's hospital stay. If you need more in formation, please feel free to call me at [phone] or please obtain the full medical records. TIME SPENT: Approximately 45 minutes was spent to complete this discharge. [id number]/[facility] #: [id number]
== END 2018-04-21 10:50 | disposition home or self-care (01) | DRG 310 ==
LOC: ED 09:21 → ICU 11:46 → ED 13:17 → MEDTELE 04-20 15:19
PROVIDERS: ADMIT Internal Medicine; ATTEND Internal Medicine
PROC: 4A12XM4 Monitoring of Cardiac Stress, External Approach (ICD-10-PCS; 2018-04-19)
PROC: 5A2204Z Restoration of Cardiac Rhythm, Single (ICD-10-PCS; principal; 2018-04-20 09:30)
DX: I48.0 Paroxysmal atrial fibrillation (principal); I10 Essential (primary) hypertension; E78.5 Hyperlipidemia, unspecified; K21.9 Gastro-esophageal reflux disease without esophagitis; E53.8 Deficiency of other specified B group vitamins; I44.7 Left bundle-branch block, unspecified; M19.90 Unspecified osteoarthritis, unspecified site; I08.1 Rheumatic disorders of both mitral and tricuspid valves; I48.92 Unspecified atrial flutter; E89.0 Postprocedural hypothyroidism; Z90.710 Acquired absence of both cervix and uterus; Z88.1 Allergy status to other antibiotic agents; Z88.8 Allergy status to other drugs, medicaments and biological substances; Z83.3 Family history of diabetes mellitus; Z80.0 Family history of malignant neoplasm of digestive organs; Z79.01 Long term (current) use of anticoagulants; Z90.89 Acquired absence of other organs
CPT/HCPCS: 36415; 71045; 78452; 80053; 83605; 83735; 84443; 84484; 85025; 85379; 87641; 92960; 93005; 93306; 99156; 99157; 99285; A9270-GY; A9502; C8929; J0280; J0282; J2250; J2310; J2785; J3010; J3475

== ENCOUNTER 2018-04-23 07:52 | Emergency (ER) | payer MEDICARE ==
[2018-04-23] MEDS ORDERED: NS 0.9% 1000 ML* 1,000 ML IV ONE (07:56)
[2018-04-23] MEDS ORDERED: Metoprolol Tartrate IV* 1 MG/ML 5 ML VIAL IV ONE (08:11)
[2018-04-23] MEDS ORDERED: Diltiazem IV* 5 MG/ML 5 ML VIAL (for loading dose/IV Push) (25 MG) IV SLOW PU ONE (08:22)
--- NOTE | 2018-04-23 08:25 | RAD ---
HISTORY: syncope COMPARISONS: April 18, 2018 VIEWS: 1: frontal portable view of the chest at 8:15 AM FINDINGS: LINES AND TUBES: None. CARDIOMEDIASTINAL SILHOUETTE: The cardiomediastinal silhouette is normal for portable technique. PLEURA: The costophrenic angles are sharp. No pleural abnormalities are noted. LUNG PARENCHYMA: The lungs are clear. ABDOMEN: The upper abdomen is clear. There is no subphrenic gas. BONES AND SOFT TISSUES: No bone or soft tissue abnormalities are noted. IMPRESSION: NO ACTIVE CARDIOPULMONARY DISEASE.
[2018-04-23 08:31] LABS: ABS Basophils 0 10^3/ul (0-0.2); ABS Eosinophils 0.1 10^3/ul (0-0.6); ABS Lymphocytes 1.5 10^3/ul (1.0-4.8); ABS Monocytes 0.5 10^3/ul (0-0.8); ABS Neutrophils 4.1 10^3/ul (1.5-7.7); ABS Nucleated RBC 0 10^3/ul; Eosinophil % 2.2 % (0-6); Hematocrit 42 % (35-47); Hemoglobin 14.1 g/dl (12.0-16.0); Lymphocyte % 23.5 % (25-47); Mean Corpuscular HGB Conc 34 g/dl (31-36); Mean Corpuscular Hemoglobin 31 pg (27-31); Mean Corpuscular Volume 91 fL (80-97); Mean Platelet Volume 7.7 um3 (7.4-10.4); Nucleated Red Blood Cells % 0; Platelet Count 259 10^3/ul (150-450); Red Blood Count 4.59 10^6/ul (4.00-5.40); Red Cell Distribution Width 14 % (10.5-15); White Blood Count 6.2 10^3/ul (3.5-10.8)
[2018-04-23 08:47] LABS: INR 1.2 (0.77-1.02)
[2018-04-23 09:01] LABS: EGFR Non-African American 43.2 (>60)
[2018-04-23] MEDS ORDERED: Diltiazem CD CAP* 120 MG PO ONE (09:11)
[2018-04-23 10:14] VITALS: BP 142/96
--- NOTE | 2018-04-23 19:10 | ED ---
Alvino Loving Jade, scribed for Kieran Pillai MD on 04/23/18 at 0836 . HPI Cardiac - HPI Summary HPI Summary: Pt is an 82 y/o female who presents to the ED c/o irregular heart rate since 06: 00. She has a PMHx of AFib and is on Eliquis, Metoprolol, and Amiodarone for the disease. Pt states she normally can feel AFib coming on, but this time it feels different, and is describes as heavy. Pt also has SOB, but denies any abdominal pain. She was recently discharged from the hospital for AFib 2 days ago, and was recently taken off Cardizem. Pt also has PMHx of hypothyroidism. - History of Current Complaint Chief Complaint: EDDysrhythmPalp Stated Complaint: CHEST PRESSURE Time Seen by Provider: 04/23/18 08:10 Hx Obtained From: Patient, Family/Real Time Trader - Daughter Onset/Duration: Started Hours Ago - 06:00, Still Present Current Severity: Moderate Pain Intensity: 3 Pain Scale Used: 0-10 Numeric Character: Irregular Associated Signs and Symptoms: Positive: Shortness of Breath. Negative: Abdominal Pain - Additional Pertinent History Primary Care Physician: [id number] - Allergy/Home Medications Allergies/Adverse Reactions: Allergies Allergy/AdvReac Type Severity Reaction Status Date / Time Tetracyclines Allergy Rash Verified 04/23/18 07:58 PMH/Surg Hx/FS Hx/Imm Hx Endocrine/Hematology History: Reports: Hx Thyroid Disease Denies: Hx Diabetes Cardiovascular History: Reports: Hx Angina - stable angina, Hx Atrial Fibrillation, Hx Hypercholesterolemia, Hx Hypertension, Hx Rheumatic Fever, Hx Valvular Heart Disease Denies: Hx Pacemaker/ICD Sensory History: Denies: Hx Contacts or Glasses, Hx Hearing Aid Opthamlomology History: Denies: Hx Contacts or Glasses Infectious Disease History: No Infectious Disease History: Denies: Traveled Outside the [place] in Last 30 Days - Family History Known Family History: Positive: Diabetes Family History: Cancer, migraines - Social History Alcohol Use: None Alcohol Amount: wine Substance Use Type: Reports: None Smoking Status (MU): Never Smoked Tobacco Review of Systems Negative: Fever Positive: Other - Irregular and fast heart rate Positive: Shortness Of Breath Negative: Abdominal Pain All Other Systems Reviewed And Are Negative: Yes Physical Exam - Summary Physical Exam Summary: Appearance: Well appearing, no pain distress Skin: warm, dry, reflects adequate perfusion Head/face: normal Eyes: EOMI, AXEL ENT: normal Neck: supple, non-tender Respiratory: CTA, breath sounds present Cardiovascular: pulses symmetrical. Heart beat rapid and irregular. No JVD. No lower extremity edema. No murmur. Abdomen: non-tender, soft Bowel Sounds: present Musculoskeletal: normal, strength/ROM intact Neuro: normal, sensory motor intact, A&Ox3 Triage Information Reviewed: Yes Vital Signs On Initial Exam: Initial Vitals Temp Pulse Resp BP Pulse Ox 97.4 F 127 18 118/92 97 04/23/18 07:55 04/23/18 07:55 04/23/18 07:55 04/23/18 07:55 04/23/18 07:55 Vital Signs Reviewed: Yes Diagnostics - Vital Signs Vital Signs Temp Pulse Resp BP Pulse Ox 04/23/18 07:55 97.4 F 127 18 118/92 97 - Laboratory Lab Results: Lab Results 04/23/18 Range/Units 08:16 WBC 6.2 (3.5-10.8) 10^3/ul RBC 4.59 (4.00-5.40) 10^6/ul Hgb 14.1 (12.0-16.0) g/dl Hct 42 (35-47) % MCV 91 (80-97) fL MCH 31 (27-31) pg MCHC 34 (31-36) g/dl RDW 14 (10.5-15) % Plt Count 259 (150-450) 10^3/ul MPV 7.7 (7.4-10.4) um3 Neut % (Auto) 65.9 (38-83) % Lymph % (Auto) 23.5 L (25-47) % Carbon % (Auto) 7.8 H (0-7) % Eos % (Auto) 2.2 (0-6) % Baso % (Auto) 0.6 (0-2) % Absolute Neuts (auto) 4.1 (1.5-7.7) 10^3/ul Absolute Lymphs (auto) 1.5 (1.0-4.8) 10^3/ul Absolute Monos (auto) 0.5 (0-0.8) 10^3/ul Absolute Eos (auto) 0.1 (0-0.6) 10^3/ul Absolute Basos (auto) 0 (0-0.2) 10^3/ul Absolute Nucleated RBC 0 10^3/ul Nucleated RBC % 0 Result Diagrams: 18 08:16 18 08:16 Lab Statement: Any lab studies that have been ordered have been reviewed, and results considered in the medical decision making process. - Radiology CXR Xray Interpretation: No Acute Changes - NO ACTIVE CARDIOPULMONARY DISEASE. ED physician reviewed radiology report. Radiology Interpretation Completed By: Radiologist - EKG 08:01 Cardiac Rate: Tachycardia - 106 bpm EKG Rhythm: Atrial Fibrillation - With rapid ventricular response ST Segment: Non-Specific EKG Interpretation: RVR, LVH criteria, normal axis Re-Evaluation - Re-Evaluation First Eval Re-Evaluation Time: 08:58 Change: Improved Comment: Pt feels much better. HR in 70s. Second Eval Re-Evaluation Time: 09:12 Change: Improved Comment: Pt feels good and wants to go home. Disposition - Course Course Of Treatment: Patient with history of atrial fibrillation recently admitted for rapid ventricular response. She presents today with the same. She has been on amiodarone and metoprolol. She previously was well controlled on diltiazem. Discussed the case with welding machine feeder who wishes for the patient to be laced on low-dose Cardizem. She was rate controlled with a single bolus of diltiazem IV. He wishes for her to be placed on 120 mg of controlled- release diltiazem. She'll take that every other day after her second dose being given tomorrow. First dose given here. She was feeling well and discharged in good condition to follow up with her welding machine feeder. - Differential Dx - Cardiopulmonary Differential Diagnoses - Cardiopulmonary: Other - Rapid atrial fibrillation, coronary artery disease, cardiac ischemia - Diagnoses Provider Diagnoses: Atrial fibrillation with RVR - Physician Notifications Discussed Care Of Patient With: Pharmacist - Dr. Merino from cardiology consulted and wishes the patient to be given Cardizem here and outpatient Time Discussed With Above Provider: 08:21 Instructed by Provider To: Other - Spoke to pharmacist about using IV Diltiazem and Amiodarone - pharmacist said this is safe. At 9:[address] Merino, he wants to give 120 mg Cardizem today and tomorrow, then every other day. Pt to follow up with welding machine feeder on Wednesday. - Critical Care Time Critical Care Time: 30-74 min - Critical care time is exclusive of separately billable procedures Discharge - Sign-Out/Discharge Documenting (check all that apply): Discharge/Admit/Transfer - Discharge - Discharge Plan Condition: Improved Disposition: HOME Prescriptions: dilTIAZem HCl [Diltiazem ER] 120 mg PO SEE INSTRUCTIONS #30 cap.er.deg dilTIAZem HCl [Diltiazem ER] 120 mg PO SEE INSTRUCTIONS #30 cap.er.deg Patient Education Materials: A-fib (Atrial Fibrillation) (ED) Referrals: Ryan Mclean MD [Medical Doctor] - Shruthi BARRON,Darron Chavez [Primary Care Provider] - Additional Instructions: Call cardiology or return if uncontrolled rate, chest pain, worse or other concerns. Start medication tomorrow and then take every other day. Cardiology may alter the dosing of the medication. Take all other prescribed medications as previously prescribed. - Billing Disposition and Condition Condition: IMPROVED Disposition: Home The documentation as recorded by the Alvino herman Jade accurately reflects the service I personally performed and the decisions made by , Kieran Pillai MD.
== END 2018-04-23 10:14 | disposition home or self-care (01) ==
LOC: ED 07:52
DX: I48.91 Unspecified atrial fibrillation (principal); I20.8 Other forms of angina pectoris; I10 Essential (primary) hypertension; E03.9 Hypothyroidism, unspecified; Z79.01 Long term (current) use of anticoagulants; Z79.899 Other long term (current) drug therapy; Z88.3 Allergy status to other anti-infective agents
CPT/HCPCS: 36415; 71045; 80053; 83605; 83735; 83880; 84443; 84484; 85025; 85610; 93005; 96374; 99283; J3490

== ENCOUNTER 2019-10-26 13:31 | Observation (INO) | payer MEDICARE ==
--- NOTE | 2019-10-26 14:01 | ED ---
Palpitations / Dysrhythmia - HPI Summary HPI Summary: This pt is an 84 y/o female presenting to [facility] referred by PCP for chest pain x4 days and fast heart rate today. Pt has been having central chest pain and cough for the past 4 days. Patient went to [place] [facility] and was diagnosed with "walking pneumonia." She did not have a CXR or EKG at that time and was prescribed Zpack. Pt reports she was at her PCP's office, Dr. Hawkins, for a follow up and was noted to have heart rate in the 130s. PCP referred the patient to the ED as patient was not rate rhythm controlled in his office. She was given baby aspirin x2 and sent to the ED for further work up. Pt currently describes chest pain as "elephant sitting on me" that has been a "steady ache." She states if she bends over she feels like she will continue to fall over, as if she was holding something and pulling her down. Denies dizziness. She states her cardiologists are Dr. Mclean and Dr. Lynne. Her last echo was in April 2018 and last stress test was in April 2018. Patient is compliant with Eliquis. Denies hx of CHF or pleural effusions. Denies hx of stents or bypass surgery. PMHx: rheumatic fever as a child but denies rheumatic heart. Pt states she received her flu shot this year. - History of Current Complaint Chief Complaint: EDChestPainROMI Hx Obtained From: Patient Onset/Duration: Lasting Days, Still Present Timing: Constant Severity Initially: Moderate Severity Currently: Moderate Aggravating: Nothing Alleviating: Nothing Associated Signs & Symptoms: Chest Pain - and cough - Allergy/Home Medications Allergies/Adverse Reactions: Allergies Allergy/AdvReac Type Severity Reaction Status Date / Time Tetracyclines Allergy Rash Verified 04/23/18 07:58 Home Medications: Home Medications C,E,Zinc,Copper 11/Etpil3j/Lut [Ocuvite Adult 50 Plus Softgel] 1 each PO DAILY 10/26/19 [History Confirmed 10/26/19] Calcium Polycarbophil [Fiber Therapy] 625 mg PO DAILY 10/26/19 [History Confirmed 10/26/19] Escitalopram * [Lexapro 10 mg (NF)] 10 mg PO DAILY 10/26/19 [History Confirmed 10/26/19] Lisinopril TAB* [Prinivil TAB*] 5 mg PO DAILY 10/26/19 [History Confirmed ] dilTIAZem HCl [Diltiazem ER] 120 mg PO DAILY 10/26/19 [History Confirmed ] PMH/Surg Hx/FS Hx/Imm Hx Endocrine/Hematology History: Reports: Hx Thyroid Disease Denies: Hx Diabetes Cardiovascular History: Reports: Hx Angina - stable angina, Hx Atrial Fibrillation, Hx Hypercholesterolemia, Hx Hypertension, Hx Rheumatic Fever, Hx Valvular Heart Disease Denies: Hx Pacemaker/ICD Sensory History: Denies: Hx Contacts or Glasses, Hx Hearing Aid Opthamlomology History: Denies: Hx Contacts or Glasses Infectious Disease History: No Infectious Disease History: Denies: Traveled Outside the [place] in Last 30 Days - Family History Known Family History: Positive: Diabetes Family History: Cancer, migraines - Social History Alcohol Use: None Alcohol Amount: wine Substance Use Type: Reports: None Smoking Status (MU): Never Smoked Tobacco Review of Systems Negative: Fever Positive: Chest Pain Positive: Cough Neurological: Other - NEGATIVE: dizziness All Other Systems Reviewed And Are Negative: Yes Physical Exam - Summary Physical Exam Summary: Constitutional: Well-developed, Well-nourished, Alert. (-) Distressed Skin: Warm, Dry. No breaks in the skin. HENT: Normocephalic; Atraumatic Eyes: Conjunctiva normal Neck: Musculoskeletal ROM normal neck. (-) JVD, (-) Stridor, (-) Tracheal deviation Cardio: Irregular, S1, S2; Intact distal pulses; The pedal pulses are 2+ and symmetric. Radial pulses are 2+ and symmetric. Pulmonary/Chest wall: Effort normal. (-) Respiratory distress, Right lower lobe with faint crackles. Left is clear. No wheezes and no rhonchi. Localizing pain to the substernal and retrosternal space, but not tender on exam. Abd: Soft, (-) tenderness, (-) Distension, (-) Guarding, (-) Rebound Musculoskeletal: (-) Edema. Warm and well perfused. Neuro: Alert, Oriented x3 Psych: Mood and affect Normal Triage Information Reviewed: Yes Vital Signs On Initial Exam: Initial Vitals Temp Pulse Resp BP Pulse Ox 97.2 F 100 19 141/93 100 10/26/19 13:35 10/26/19 13:35 10/26/19 13:35 10/26/19 13:35 10/26/19 13:35 Vital Signs Reviewed: Yes Procedures - Sedation Patient Received Moderate/Deep Sedation with Procedure: No Diagnostics - Vital Signs Vital Signs Temp Pulse Resp BP Pulse Ox 10/26/19 13:35 97.2 F 100 19 141/93 100 - Laboratory Result Diagrams: 10/26/19 14:09 10/26/19 14:10 Lab Statement: Any lab studies that have been ordered have been reviewed, and results considered in the medical decision making process. - Radiology Chest XR Radiology Interpretation Completed By: ED Physician - Maybe questionable hazziness of bilateral costophrenic angles. No focal consolidation., Radiologist Summary of Radiographic Findings: IMPRESSION: No active cardiopulmonary disease. Dr. Lugo has reviewed this report. - EKG 13:37 Cardiac Rate: Tachycardia - at 104 bpm EKG Rhythm: Atrial Fibrillation EKG Comparison: Other - Voltage decreased from prior on 04/23/18. T waves are hyperacute in V2 and V3 distribution compared to the last EKG on 04/23/18. QTc is prolonged cat 487 compared to prior EKG on 04/23/18. Summary of EKG Findings: EKG at 1337 shows atrial fibrillation at a rate of 104 bpm. Motion artifact. No STEMI. Voltage decreased from prior on 04/23/18. T waves are hyperacute in V2 and V3 distribution compared to the last EKG on . QTc is prolonged at 487 compared to prior EKG on 04/23/18. Course/Dx - Course Assessment/Plan: Pt is an 84 y/o female, with hx of afib, presenting to [facility] referred by PCP for chest pain and cough x4 days and fast heart rate today. Patient went to [place] ER and was diagnosed with "walking pneumonia." She did not have a CXR or EKG at that time and was prescribed Zpack. Plan for chest XR , blood work, and IV fluids. Chest XR shows no active cardiopulmonary disease. Pro BNP today is 402 and in April 2018 it was 319. Not significantly changed from baseline, tiny touch of CHF but not awful. Patient is not edematous. Dr. Hawkins, patient's PCP, called for a follow up and told him patient needed to be admitted due to persistent symptoms despite having negative results. Dr. Hawkins reports patient was indeed in the 130s-140s in rapid afib in his office. Due to patient being in and out of RVR, with a cardiac history, with active chest pressure, patient will be presented for admission. Discussed case with Dr. Carrillo, hospitalist, who accepted the pt for admission. - Diagnoses Provider Diagnoses: Chest pain - Physician Notifications Discussed Care Of Patient With: Darron Hawkins MD Time Discussed With Above Provider: 15:41 Instructed by Provider To: Other - Dr. Hawkins, patient's PCP, called for a follow up and told him patient needed to be admitted due to persistent symptoms despite having negative results. Dr. Hawkins reports patient was in the 130s- 140s in rapid afib in his office. [16:45] Discussed case with Dr. Carrillo, hospitalist, who accepted the pt for admission. Discharge ED - Sign-Out/Discharge Documenting (check all that apply): Patient Departure - Ad[place] to [facility] - Discharge Plan Condition: Stable Disposition: ADMITTED TO [facility] Referrals: Shruthi BARRON,Darron Chavez [Primary Care Provider] - - Billing Disposition and Condition Condition: STABLE Disposition: Admitted to [facility] - Attestation Statements Document Initiated by Megan: Yes Documenting Scribe: Larissa Block Provider For Whom Megan is Documenting (Include Credential): Luis F Lugo MD Scribe Attestation: Larissa Loving, scribed for Luis F Lugo MD on 10/26/19 at 1844. Scribe Documentation Reviewed: Yes Provider Attestation: The documentation as recorded by the Larissa herman accurately reflects the service I personally performed and the decisions made by me, Luis F Lugo MD Status of Scribe Document: Viewed
[2019-10-26 14:25] LABS: ABS Eosinophils 0.2 10^3/ul (0-0.6); ABS Lymphocytes 1.6 10^3/ul (1.0-4.8); ABS Neutrophils 5.9 10^3/ul (1.5-7.7); Eosinophil % 2.6 %; Hematocrit 39 % (35-47); Hemoglobin 13.2 g/dL (12.0-16.0); Lymphocyte % 18.4 %; Mean Corpuscular HGB Conc 34 g/dL (31-36); Mean Corpuscular Hemoglobin 32 pg (27-31); Mean Corpuscular Volume 94 fL (80-97); Mean Platelet Volume 8.2 fL (7.4-10.4); Nucleated Red Blood Cells % 0.1; Platelet Count 216 10^3/uL (150-450); Red Blood Count 4.18 10^6 /uL (3.70-4.87); Red Cell Distribution Width 14 % (10-15); White Blood Count 8.8 10^3/uL (3.5-10.8)
[2019-10-26] MEDS ORDERED: Lactated Ringers 1000 ML Bag* 1,000 ML IV ONE (14:30)
[2019-10-26 14:38] LABS: Albumin 3.9 g/dL (3.2-5.2); Albumin/Globulin Ratio 1.3 (1-3); BUN/Creatinine Ratio 11.9 (8-20); Calcium 8.6 mg/dL (8.6-10.3); EGFR African American 63.5 (>60); EGFR Non-African American 52.5 (>60); Potassium 3.5 mmol/L (3.5-5.0); Total Bilirubin 0.8 mg/dL (0.2-1.0); Total Protein 6.9 g/dL (6.4-8.9)
[2019-10-26 14:38] LABS: Activated Partial Thrombo Time 36.4 seconds (26.0-38.0); INR 2.04 (0.82-1.09)
[2019-10-26] MEDS ORDERED: Al Hydrox/Mg Hydrox/Simet LIQ* 30 ML UDC PO PRN (19:18)
[2019-10-26] MEDS ORDERED: Acetaminophen TAB* 325 MG PO PRN (19:18)
[2019-10-26 20:07] LABS: Magnesium 1.6 mg/dL (1.9-2.7)
[2019-10-26 20:22] LABS: TSH (Thyroid Stimulating Horm) 3.87 mcIU/mL (0.34-5.60)
[2019-10-26] MEDS ORDERED: OMEPRAZOLE 20 MG PO SCH (21:00)
--- NOTE | 2019-10-26 21:12 | HP ---
CC: Dr. Darron Hawkins * HISTORY AND PHYSICAL: DATE OF ADMISSION: 10/26/19 PROVIDER: Julee Suazo NP PRIMARY CARE PROVIDER: Dr. Darron Hawkins. ATTENDING PHYSICIAN WHILE IN THE HOSPITAL: Dr. Felipe Walls * (dictated by Julee Suazo NP). CHIEF COMPLAINT: Chest pain. HISTORY OF PRESENT ILLNESS: Ms. Falcon is an 84-year-old female with a past medical history significant for osteoarthritis, hypertension, paroxysmal atrial fibrillation, hyperlipidemia, hypothyroid, mitral valve prolapse, GERD, vitamin B12 deficiency, who reports that she was in her usual state of health until 3 days ago. The patient reports that 3 days ago she started to develop pressure in her chest, radiated to her left arm and down her left arm causing some left hand tingling. The patient reports that symptoms worsened with exertion. The patient also reports that she was setting up for a cooking sale at [facility] and walking up and down the stairs exacerbated her chest pain. She reports she felt heaviness in her chest that radiated up to her shoulder and down her left arm. The patient does report that yesterday she was seen in [place] ED and diagnosed as walking pneumonia. She denies any cough or congestion. Denies any fever or chills. Denies weakness. She does report shortness of breath and chest pain that radiates to her left arm, left shoulder, and down her left arm with numbness and tingling on the hand. The patient currently reports that this has subsided since her heart rate has come down. The patient was seen in her primary care doctor's office today due to her ongoing episodes of chest pain. She was noted to have a rapid heart rate and be in atrial fibrillation in the rate of 130s, so she was sent to the emergency room for further evaluation. While in the emergency room, the patient had a routine lab work drawn. Her initial 2 troponins were negative. Her EKG on arrival showed atrial fibrillation at a rate of 104. Due to her complaints of chest pain and shortness of breath worse with exertion, Hospital Medicine was asked to see and evaluate her for admission. PAST MEDICAL HISTORY: Significant for: 1. Osteoarthritis. 2. Hypertension. 3. Paroxysmal atrial fibrillation. 4. Hyperlipidemia. 5. Hypothyroid. 6. Mitral valve prolapse. 7. GERD. 8. Vitamin B12 deficiency. PAST SURGICAL HISTORY: 1. ORIF of the pelvis. 2. History of partial thyroidectomy. 3. Benign cyst in the right arm. 4. 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 5. Hysterectomy. 6. Appendectomy. 7. Left breast lumpectomy. 8. Right carpal tunnel release. HOME MEDICATIONS: Include: 1. Lexapro 10 mg p.o. daily. 2. Eliquis 5 mg p.o. b.i.d. 3. Levothyroxine 75 mcg p.o. daily. 4. Ocuvite 1 tab p.o. daily. 5. Omeprazole 20 mg p.o. daily. 6. Lisinopril 5 mg p.o. daily. 7. Vitamin D 1000 units p.o. daily. 8. Cardizem ER 120 one tablet p.o. daily. 9. Metoprolol 100 mg twice daily. 10. Evista 60 mg p.o. daily. ALLERGIES: TETRACYCLINE and MULTAQ. FAMILY HISTORY: She denies any history of coronary artery disease, son with diabetes, mother passed from colon cancer. SOCIAL HISTORY: The patient denies tobacco or recreational drug use. She does report daily to every other day 2 glasses of wine. Her daughter, Janine Arriaga, is her surrogate decision maker in the event she is unable to make her own decisions. She is a DNR. A MOLST form was completed and placed on the chart. REVIEW OF SYSTEMS: An 11-point review of systems was completed, all pertinent positives are mentioned in the HPI, otherwise were negative. PHYSICAL EXAMINATION GENERAL: At this time, Ms. Falcon is alert and oriented, resting on the stretcher in the emergency room. She is in no acute distress. VITAL SIGNS: Blood pressure 140/100, heart rate 114, respirations are 15, O2 saturation 97%, temperature was 97.2. HEENT: Head is atraumatic and normocephalic. Eyes: EOMs are intact. Sclerae anicteric and not pale. Oral mucosa is moist. NECK: Supple. LUNGS: Clear to auscultation bilaterally. No wheezes, rales, or rhonchi. CARDIAC: S1 and S2. Irregular rate and rhythm. She is tachycardic. No rubs or gallops. No appreciated murmur. ABDOMEN: Soft and nontender. Bowel sounds are present x4. EXTREMITIES: She is able to move all 4 extremities. There is no clubbing or cyanosis. There is no edema. NEUROLOGIC: She is awake, alert, and oriented x3. Speech is clear. Thought process is intact. There is no gross focal deficits. SKIN: Intact. DIAGNOSTIC STUDIES/LAB DATA: WBC are 8.8, RBC is 4.18, hemoglobin 13.2, hematocrit 39, and platelet count 216. INR is 2.04, aPTT was 36.4. Sodium 141 , potassium 3.5, chloride 107, carbon dioxide was 27, anion gap was 7, BUN was 12, creatinine 1.01. ASTs were 16, ALTs were 19, alkaline phosphatase was 82. Troponin was 0.00 x2. BNP was 402. She had a chest x-ray, radiologist's impression: No active cardiopulmonary disease. She had an electrocardiogram, which showed atrial fibrillation at a rate of 104. ASSESSMENT AND PLAN: Ms. Falcon is an 84-year-old female with a past medical history significant for hypertension, hyperlipidemia, hypothyroid, osteoarthritis, history of paroxysmal atrial fibrillation, who presented to the emergency room with complaints of chest pain radiating to her left shoulder down the left arm with numbness and tingling in her fingers. She will be admitted under observation for: 1. Chest pain. rule out acute coronary syndrome. The patient will have a chemical nuclear stress test and transthoracic echocardiogram. We will monitor on telemetry overnight, I will repeat her troponin x1 more. Her first 2 initial troponins were 0.00 x2. She will have a lipid profile. Currently, the patient is chest pain free. I suspect that her chest pain could be related to atrial fibrillation with RVR, as the patient was noted to have a heart rate in the 130s today when she was experiencing chest pressure and pain, though the patient does report with exertion in climbing stairs chest pain does become worse and does improve with rest. We will continue metoprolol and atorvastatin as previously prescribed. 2. Atrial fibrillation. The patient does have a history of paroxysmal atrial fibrillation. The patient is currently in atrial fibrillation and we will continue her on Eliquis, Cardizem, and metoprolol as previously prescribed. 3. Hypertension. She will continue on metoprolol, Cardizem, and lisinopril as previously prescribed as well as Eliquis. 4. Hyperlipidemia. She will continue on atorvastatin 40 mg p.o. daily. 5. Gastroesophageal reflux disease. She will continue on omeprazole 20 mg p.o. daily. 6. Vitamin B12 deficiency. She will continue on vitamin B12 1000 mcg p.o. daily. 7. FEN: She can have a heart healthy, no caffeine diet. 8. Code status: She is a DNR. 9. DVT prophylaxis: We will continue her Eliquis. TIME SPENT: Time spent on this admission was 60 minutes; greater than half that time was spent at the bedside reviewing events leading thus far to her hospitalization, performing physical exam, and reviewing my plan of care. I have discussed this with my attending, Dr. Felipe Walls; he is in agreement with my plan. JULEE SUAZO, ASHKAN [id number]/[facility]PS #: [id number] MTDD
[2019-10-26] MEDS: Metoprolol Tartrate TAB* 100 MG TAB PO SCH (21:43)
[2019-10-26] MEDS: Apixaban* 5 MG TAB PO SCH (21:43)
[2019-10-27] MEDS ORDERED: Magnesium Sulfate 2 GM IV* 2 GM/50 ML BAG IVPB ONE (01:00)
[2019-10-27] MEDS ORDERED: Levothyroxine TAB* 75 MCG TAB PO SCH (06:00)
[2019-10-27 07:12] LABS: BUN/Creatinine Ratio 10.8 (8-20); Calcium 8.3 mg/dL (8.6-10.3); EGFR African American 79.6 (>60); EGFR Non-African American 65.8 (>60); HDL Cholesterol 40.9 mg/dL; Potassium 3.3 mmol/L (3.5-5.0)
[2019-10-27] MEDS ORDERED: Diltiazem CD CAP* 120 MG PO SCH (09:00)
[2019-10-27] MEDS ORDERED: RALOXIFENE 60 MG PO SCH (09:00)
[2019-10-27] MEDS ORDERED: Calcium Polycarbophil TAB* 625 MG PO SCH (09:00)
[2019-10-27] MEDS ORDERED: Lisinopril TAB* 5 MG PO SCH (09:00)
[2019-10-27] MEDS ORDERED: Atorvastatin* 40 MG TAB PO SCH (09:00)
[2019-10-27] MEDS ORDERED: Cyanocobalamin TAB* 500 MCG PO SCH (09:00)
[2019-10-27] MEDS ORDERED: Cholecalciferol TAB* 1000 UNITS PO SCH (09:00)
[2019-10-27] MEDS: Metoprolol Tartrate TAB* 100 MG TAB PO SCH (10:39)
[2019-10-27] MEDS: Apixaban* 5 MG TAB PO SCH (10:39)
--- NOTE | 2019-10-27 10:41 | ECHO ---
*[facility]* [place] [address] Fax #: [phone] Transthoracic Echocardiogram Patient: Micki Falcon : 1935 Study Date: 10/27/2019 Age: 84 Gender: F HR: 76 bpm Height: 67 in /170.2 cm BSA: 1.79 m^2 Weight: 149.7 lb /68 kg BMI: 23.5 kg/m^2 *[employer]: * Emani Byrd [facility] *Referring Physician: * Julee Suazo *Reading Physician: * Reji Lynne MD Indications: Chest Pain, unspecified. Abnormal EKG. History: Atrial fibrillation. Risk factors: Hypertension. Dyslipidemia. Recent pneumonia diagnosis. Conclusions Summary: - Left ventricle: The cavity size is normal. Wall thickness is mildly increased. Systolic function is at the lower limits of normal. The estimated ejection fraction is 50-55%. Wall motion is normal; there are no regional wall motion abnormalities. - Right ventricle: The cavity size is at the upper limits of normal. Systolic function is mildly reduced. Systolic pressure is mildly increased. - Left atrium: The atrium is mildly to moderately dilated. - Mitral valve: There is mild to moderate regurgitation. - Tricuspid valve: There is mild-moderate regurgitation. Recommendations: Patient in afib at time of study. Compared to prior from 04/2018, no clinically signficant changes noted. Study data: Transthoracic echocardiogram. Procedure: Transthoracic echocardiography was performed. Image quality was good. Complete 2D, spectral Doppler, and color flow Doppler. Location: Bedside. Patient status: Inpatient. Patient room number: 442-02. Rhythm: Atrial fibrillation. Findings Left ventricle: The cavity size is normal. Wall thickness is mildly increased. Systolic function is at the lower limits of normal. The estimated ejection fraction is 50-55%. Wall motion is normal; there are no regional wall motion abnormalities. Left ventricular diastolic function parameters are indeterminate. Right ventricle: The cavity size is at the upper limits of normal. Systolic function is mildly reduced. Systolic pressure is mildly increased. Left atrium: The atrium is mildly to moderately dilated. Right atrium: The atrium is mildly to moderately dilated. Mitral valve: The leaflets are mildly thickened. There is no evidence of stenosis. There is mild to moderate regurgitation. Aortic valve: The valve is trileaflet. The leaflets are mildly thickened. There is no evidence of stenosis. There is trace regurgitation. Tricuspid valve: The leaflets are normal thickness. There is no evidence of stenosis. There is mild-moderate regurgitation. Pulmonic valve: The leaflets are normal thickness. There is no evidence of stenosis. There is trace regurgitation. Aorta: Aortic root: The aortic root is appears normal. Ascending aorta: The ascending aorta is appears normal. Aortic arch: The aortic arch is appears normal. Pericardium: There is no significant pericardial effusion. Pulmonary arteries: The main pulmonary artery is normal-sized. Systolic pressure is mildly increased. Systemic veins: Inferior vena cava: The vessel is at the upper limits of normal in size. There is (>= 50%) respiratory change in the IVC dimension. Measurements Left ventricle Value Ref Aortic valve Value Ref JOHNY, LAX 3.9 cm 3.8 - 5.2 Alvarado diam, ED 1.8 cm ----- ESD, LAX (L) 1.8 cm 2.2 - 3.5 Peak v, S 1.14 m/sec ----- FS, LAX (H) 54 % 27 - 45 VTI, S 19.4 cm ----- PW, ED, LAX 0.9 cm 0.6 - 0.9 Mean grad, S 3.0 mm Hg ----- FS (H) 54 % 27 - 45 Peak grad, S 5.0 mm Hg ----- PW, ED 0.9 cm 0.6 - 0.9 LVOT/AV, VTI ratio 0.72 ----- E', lat alvarado, TDI 10.6 cm/sec >=10.0 E/e', lat alvarado, 9 Mitral valve Value Ref TDI Peak E 0.93 m/sec ----- E', med alvarado, TDI 8.2 cm/sec >=7.0 Decel time 200 ms --- -- E/e', med alvarado, 11 Peak grad, D 3.4 mm Hg ----- TDI E', avg, TDI 9.4 cm/sec Pulmonic valve Value Ref E/e', avg, TDI 10 <=14 Peak v, S 0.7 m/sec --- -- Peak grad, S 2.0 mm Hg ----- LVOT Value Ref Peak de, S 0.82 m/sec Tricuspid valve Value Ref VTI, S 14.0 cm TR peak v (H) 3.1 m/sec <=2.8 Peak grad, S 3 mm Hg Peak RV-RA grad, S 38 mm Hg ----- Mean grad, S 2 mm Hg Aortic root Value Ref Ventricular septum Value Ref Root diam 3.0 cm <4.0 IVS, ED 0.9 cm 0.6 - 0.9 Ascending aorta Value Ref Right ventricle Value Ref AAo AP diam, S 3.2 cm ----- AW thickness, ED (H) 0.6 cm 0.1 - 0.5 JOHNY, LAX 2.3 cm Aortic arch Value Ref JOHNY minor ax, A4C 3.5 cm 1.9 - 3.5 Arch diam 2.5 cm ----- mid Pressure, S 41 mm Hg Decending aorta Value Ref Nyla peak de 0.45 m/sec ----- Left atrium Value Ref AP dim, ES (H) 4.10 cm 2.70 - Pulmonary artery Value Ref 3.80 Pressure, S 39.0 mm Hg ----- ML dim, A4C 4.2 cm SI dim, A4C 6.6 cm Inferior vena cava Value Ref Vol/bsa, ES, 1-p 37 ml/m^2 11 - 40 Diam 2.1 cm ----- A4C Vol/bsa, ES, A/L (H) 36 ml/m^2 16 - 34 Right atrium Value Ref SI dim, ES (H) 5.8 cm 3.4 - 5.3 ML dim, ES, A4C 3.5 cm 2.6 - 4.4 Estimated RAP 3 mm Hg Legend: (L) and (H) fallon values outside specified reference range. Prepared and electronically signed by Reji Lynne MD 10/27/2019 10:40
[2019-10-27] MEDS ORDERED: Potassium Chlor TAB* 20 MEQ TAB.ER PO ONE ×2 (12:00→14:30)
[2019-10-27] MEDS ORDERED: Aminophylline IV* 25 MG/ML 10 ML VIAL ONE (12:35)
[2019-10-27] MEDS ORDERED: Regadenoson* 0.4 MG/5 ML SYRINGE ONE (12:35)
[2019-10-27 15:46] VITALS: BP 140/84
[2019-10-27] MEDS ORDERED: Escitalopram * 10 MG TAB PO SCH (21:00)
--- NOTE | 2019-10-28 03:26 | DS ---
CC: Dr. Darron Hawkins; Dr. Ryan Mclean; Dr. Felipe Walls* DISCHARGE SUMMARY: DATE OF ADMISSION: 10/26/19 DATE OF DISCHARGE: 10/27/19 PRIMARY CARE PROVIDER: Dr. Darron Hawkins TECHNICAL SUPPORT REPRESENTATIVE: Dr. Ryan Mclean ATTENDING PHYSICIAN: Dr. Felipe Walls* (dictated by CARI Richard ). PRIMARY DIAGNOSIS: Atypical chest pain. SECONDARY DIAGNOSES: 1. Paroxysmal atrial fibrillation, on anticoagulation. 2. Hypertension. 3. Hyperlipidemia. 4. Hypothyroidism. 5. Mitral valve prolapse. 6. Gastroesophageal reflux disease. 7. Vitamin B12 deficiency. 8. Osteoarthritis. STUDIES WHILE IN THE HOSPITAL: 1. Transthoracic echocardiogram, summary: LV cavity size normal, wall thickness mildly increased, systolic function at lower limits of normal, estimated EF 50% to 55%, wall motion normal, no regional wall motion abnormalities. RV cavity size upper limits of normal. Systolic function mildly reduced. Systolic pressure mildly increased. Left atrium mildly to moderately dilated. [id number] MR. [id number] TR. No clinically significant changes compared to April 2018 study. 2. Nuclear cardiac stress test, impression: No fixed or reversible perfusion defects. Assessment: Low risk. 3. EKG, portion: Negative for myocardial ischemia by EKG criteria. DISCHARGE MEDICATIONS: Home medications: 1. Apixaban 5 mg p.o. b.i.d. 2. Atorvastatin 40 mg p.o. daily. 3. Ocuvite Adult 50+ softgel 1 tab p.o. daily. 4. Calcium polycarbophil 625 mg p.o. daily. 5. Cholecalciferol 1000 units p.o. daily. 6. Cyanocobalamin 1000 mcg p.o. daily. 7. Diltiazem 120 mg p.o. daily. 8. Escitalopram 10 mg p.o. at bedtime. 9. Levothyroxine 75 mcg p.o. daily. 10. Lisinopril 5 mg p.o. daily. 11. Metoprolol tartrate 100 mg p.o. b.i.d. 12. Omeprazole 20 mg p.o. at bedtime. 13. Raloxifene 60 mg p.o. daily. New home medications: None. Changed home medications: None. Discontinued home medications: None. HISTORY OF PRESENT ILLNESS/HOSPITAL COURSE: Ms. Falcon is an 84-year-old female with a past medical history of paroxysmal atrial fibrillation, on anticoagulation; hypertension; hyperlipidemia; mitral valve prolapse, who presented to the ER on 10/26/19 with complaints of chest pain x3 days that intermittently radiated down the left arm. She reportedly was diagnosed with walking pneumonia on Wednesday and started on azithromycin. She denies cough or fevers since that time. On , she saw her primary care provider who found her to be in atrial fibrillation (she has paroxysmal atrial fibrillation) and suggested that she go to the ER for further workup for chest pain, rule out ACS. Again, the patient states she had chest pain from Wednesday to approximately . She describes this pain as "heaviness." She notes that the pain has subsided since her heart rate has decreased. Her primary care provider found her with a heart rate in the 130s with atrial fibrillation and therefore she was sent to the ER. The patient was admitted. Troponins were trended and were 0.00 x4. An EKG was obtained and showed atrial fibrillation with a rate of [address] depression or elevation. Transthoracic echocardiogram was obtained and revealed EF of 50% to 55% without regional wall motion abnormalities and without significant change from April 2018 exam. Nuclear medicine stress test was negative by Nuclear Medicine and EKG standards. The patient again notes that her chest pain is resolved at this time. She denies chest pain, shortness of breath, cough, fever, or chills. She does note that she is a very active woman that has been baking lots of cookies recently and has complained of some dyspnea on exertion. This is likely a result of the patient's increased heart rate, which is now rate controlled on her home medications metoprolol and diltiazem. The patient has no complaints at this time and is eager to be discharged home. A cholesterol panel was obtained and revealed an LDL of 54. Her hemoglobin A1c was 6.0. She was noted to have a mild hypokalemia, which was repleted. Ms. Falcon is stable for discharge to home. PHYSICAL EXAMINATION: Vital Signs: Temperature 98.3 temporal, heart rate 86, respiratory rate 16, oxygen saturation 94% on room air, blood pressure 140/84. General: Ms. Falcon is a well-developed, well-nourished, mildly overweight, older white female who is sitting up in bed. She appears to be in no acute distress. She is pleasant, cooperative, breathing comfortably on room air. HEENT: Pupils are equally round and reactive to light. Extraocular movements are intact. Visual mcguire are grossly intact. Nonicteric sclerae. Hearing is grossly intact. Oral mucous membranes are moist. There are no lesions. The pharynx is clear. The tongue is at midline. The palate elevates symmetrically. Cardiovascular: Irregular rate, rhythm controlled. S1, S2 present. No murmurs, rubs, clicks, or gallops. There is no JVD or peripheral edema. Pulmonary: Symmetrical chest expansion without use of accessory muscles. Clear to auscultation bilaterally without rhonchi, wheeze, or rales. Abdomen: Flat, bowel sounds in all quadrants. Soft, nontender to palpation. Musculoskeletal: Full range of motion without pain or deformities. Neuro: The patient is awake. She is alert and oriented x3. Cranial nerves II through XII are grossly intact. 5/5 strength in bilateral upper and lower extremities. Steady gait without impairment. DISCHARGE PLAN: Ms. Falcon is stable for discharge to home. CONDITION: Good. DIET: Heart healthy. ACTIVITY: As tolerated. MEDICATIONS: No changes. EDUCATION: 1. Follow up with primary care provider in 4 to 7 days. 2. Return to the ER or nearest hospital if you experience any return or worsening of symptoms, chest pain or discomfort, palpitations, shortness of breath, dizziness, lightheadedness, loss of consciousness, high fevers, chills, night sweats or any other worrisome signs or symptoms. This is a summarized report of a complex medical history and hospital stay. For further details, please see the entire medical record. TIME SPENT: Approximately 30 minutes were spent on this discharge, greater than half that time was spent [id number] with the patient and her daughter discussing discharge plans and instructions. CARI SANDERSON [id number]/[facility] #: [id number] MTDD
== END 2019-10-27 16:48 | disposition home or self-care (01) ==
LOC: ED 13:31 → MEDTELE 19:18
PROVIDERS: ADMIT Nurse Practitioner; ATTEND Nurse Practitioner
DX: R07.89 Other chest pain (principal); I48.0 Paroxysmal atrial fibrillation; Z79.01 Long term (current) use of anticoagulants; I10 Essential (primary) hypertension; E78.5 Hyperlipidemia, unspecified; E03.9 Hypothyroidism, unspecified; I34.1 Nonrheumatic mitral (valve) prolapse; K21.9 Gastro-esophageal reflux disease without esophagitis; E53.8 Deficiency of other specified B group vitamins; M19.90 Unspecified osteoarthritis, unspecified site; Z79.899 Other long term (current) drug therapy; R05 Cough; E78.00 Pure hypercholesterolemia, unspecified
CPT/HCPCS: 36415; 71046; 78452; 80048; 80053; 80061; 83036; 83735; 83880; 84443; 84484; 85025; 85610; 85730; 93005; 93017; 93306; 96361; 96365; 99284; A9270-GY; A9502; G0378; J0280; J2785; J3475

== ENCOUNTER 2020-07-30 06:52 | Observation (INO) ==
[2020-07-30 07:43] LABS: ABS Eosinophils 0.1 10^3/ul (0-0.6); ABS Lymphocytes 1.3 10^3/ul (1.0-4.8); ABS Monocytes 0.4 10^3/ul (0-0.8); Eosinophil % 1.9 %; Hematocrit 38 % (35-47); Hemoglobin 13.2 g/dL (12.0-16.0); Lymphocyte % 26.9 %; Mean Corpuscular HGB Conc 35 g/dL (31-36); Mean Corpuscular Hemoglobin 32 pg (27-31); Mean Corpuscular Volume 93 fL (80-97); Mean Platelet Volume 8.6 fL (7.4-10.4); Platelet Count 205 10^3/uL (150-450); Red Blood Count 4.09 10^6 /uL (3.70-4.87); Red Cell Distribution Width 14 % (10-15); White Blood Count 4.8 10^3/uL (3.5-10.8)
[2020-07-30 07:55] LABS: Albumin 3.9 g/dL (3.2-5.2); Albumin/Globulin Ratio 1.3 (1-3); BUN/Creatinine Ratio 14.9 (8-20); Calcium 8.9 mg/dL (8.6-10.3); EGFR African American 51.5 (>60); EGFR Non-African American 42.6 (>60); Globulin 2.9 g/dL (2-4); Potassium 4.1 mmol/L (3.5-5.0); Total Bilirubin 0.5 mg/dL (0.2-1.0); Total Protein 6.8 g/dL (6.4-8.9)
[2020-07-30 08:01] LABS: INR 1.6 (0.82-1.09)
[2020-07-30] MEDS ORDERED: Ondansetron 4 mg VIAL 2 MG/ML 2 ml VIAL IV PRN (08:35)
[2020-07-30 09:16] LABS: TSH Ultra Thyroid Stim Horm 1.96 mcIU/mL (0.34-5.60)
[2020-07-30] MEDS: Cholecalciferol (VIT D3) 1,000 unit TAB PO SCH (11:51)
[2020-07-30] MEDS: RALOXIFENE 60 MG PO SCH (11:55)
[2020-07-30] MEDS ORDERED: ZINC PO SCH (21:00)
[2020-07-30] MEDS ORDERED: [UNRECOGNIZED DRUG - OTHER] PO SCH (21:00)
[2020-07-30] MEDS ORDERED: VITAMIN E PO SCH (21:00)
[2020-07-30] MEDS ORDERED: COPPER PO SCH (21:00)
[2020-07-30] MEDS ORDERED: LUTEIN PO SCH (21:00)
[2020-07-31 06:22] LABS: ABS Eosinophils 0.1 10^3/ul (0-0.6); ABS Monocytes 0.4 10^3/ul (0-0.8); ABS Neutrophils 2.6 10^3/ul (1.5-7.7); Eosinophil % 2.7 %; Hematocrit 38 % (35-47); Hemoglobin 13.1 g/dL (12.0-16.0); Lymphocyte % 38.4 %; Mean Corpuscular HGB Conc 34 g/dL (31-36); Mean Corpuscular Hemoglobin 32 pg (27-31); Mean Corpuscular Volume 93 fL (80-97); Mean Platelet Volume 8.4 fL (7.4-10.4); Platelet Count 199 10^3/uL (150-450); Red Blood Count 4.09 10^6 /uL (3.70-4.87); Red Cell Distribution Width 14 % (10-15); White Blood Count 5.2 10^3/uL (3.5-10.8)
[2020-07-31 06:55] LABS: BUN/Creatinine Ratio 19.6 (8-20); Calcium 8.9 mg/dL (8.6-10.3); EGFR African American 56.4 (>60); EGFR Non-African American 46.6 (>60); HDL Cholesterol 57.3 mg/dL; Magnesium 1.8 mg/dL (1.9-2.7)
[2020-07-31] MEDS ORDERED: Lidocaine 1% w EPI 1:100,000 MDV 20 ML VIAL ONE (09:56)
[2020-07-31 11:36] VITALS: BP 139/88
[2020-07-31] MEDS: Cholecalciferol (VIT D3) 1,000 unit TAB PO SCH (12:21)
[2020-07-31] MEDS: RALOXIFENE 60 MG PO SCH (12:25)
== END 2020-07-31 16:20 | disposition home or self-care (01) ==
LOC: ED 06:52 → MEDTELE 06:52
PROVIDERS: ADMIT Student in an Organized Health Care Education/Training Program; ATTEND Internal Medicine